=== PATIENT | male | born 1955 | race Caucasian/White ===

== ENCOUNTER 2019-02-27 05:27 | Inpatient (IN) ==
--- NOTE | 2019-02-11 19:57 | History & Physical Report ---
Date of Service February 11, 2019 Assessment & Plan (1) Status post total shoulder arthroplasty: Treatment options were discussed with the patient. He has significant pain and dysfunction of his left shoulder. Risks, benefits and alternatives to surgery including but not limited to infection, DVT, pain, stiffness, need for revision surgery, damage to blood vessels, damage to nerves, PE, , were discussed with the patient and they wish to proceed. Plan will be for left revision of the glenoid component of total shoulder arthroplasty versus conversion to reverse total shoulder arthroplasty. All questions were answered and reassurance was given. Plan will be for patient to return back to [facility] upon discharge from the hospital. Surgery is scheduled for February 27 2019 at [facility]. He will follow up in the office post operatively. Laterality: left Qualified Code(s): Z96.612 - Presence of left artificial shoulder joint (2) Left shoulder pain: History of Present Illness Chief Complaint: Left shoulder pain Patient is a 63 year old male with past medical history significant for COPD, GERD, RA, hepatitis, benign lung Mass. He presents with ongoing left shoulder pain. He had a left total shoulder arthroplasty in November of 2015. He initially had done well postoperatively. Two years post-op he sustained an injury in which his arm was forcibly abducted and externally rotated. He felt a pop at the time of injury and has had significant pain since. Blood work was obtained to rule out the possibility of infection. A CT arthrogram was also obtained. He was lost to follow-up as he was dealing with a lung Mass but turned out to be benign. He presented to the office with continued left shoulder pain and to review results of CT arthrogram. CT scan demonstrated that the glenoid poly had broken off of the pegs and is displaced. He continues to have significant pain in the shoulder and significantly decreased function of this arm. He would like to proceed with surgical revision. Patient denies headaches, sweats, fevers, chills, double vision, blurred vision, cough, sore throat, dysphagia, chest pain, sob, wheezing, n/v/d/c, numbness, tingling, fatigue, urinary symptoms, mood disorders. ROS positive for left shoulder pain and stiffness. Allergies Allergy/AdvReac Type Severity Reaction Status Date / Time No Known Allergies Allergy Unverified 02/06/19 15:16 Home Medications Home Medications Medication Instructions Recorded Confirmed Type Alvesco 1 puff INHALATION BID 09/09/18 02/06/19 History ammonium lactate 1 applic TOPICAL DAILY 09/09/18 02/06/19 History aspirin 81 mg PO .LUNCH 09/09/18 02/06/19 History gabapentin 800 mg PO TID 09/09/18 02/06/19 History levalbuterol tartrate [Xopenex HFA] 2 inh INHALATION Q6H 09/09/18 02/06/19 History naproxen 500 mg PO BID PRN 09/09/18 02/06/19 History ascorbic acid (vitamin C) [Vitamin 250 mg PO BID 02/06/19 02/06/19 History C] cholecalciferol (vitamin D3) 5,000 unit PO DAILY 02/06/19 02/06/19 History [Vitamin D3] Past Med/Surg History Medical History COPD (chronic obstructive pulmonary disease) GERD (gastroesophageal reflux disease) Hx of hepatitis HEP A/B= NO FURTHER DETAILS Neoplasm LUNG (S/P LT UPPER LOBECTOMY), TRACHEA, BRONCHUS Rheumatoid arthritis Surgical History History of arthroscopy of shoulder LEFT TSA= 12/03/15= GRADE 1 VIEW, MAC 3, ETT 8.0 AT [facility] History of lobectomy of lung 09/18/2018 - [facility] - LT VAT W/ LT UPPER LOBECTOMY + MEDIASTINAL LYMPHADENECTOMY History of lung biopsy Social History Preferred Language: Kiswahili Communication Ability: Effective Adzing 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 Boring 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 Feeder Required: No Beliefs That Will Affect Care: None Current Living Situation: Other Current Living Situation Comment: GROUP HOME Feels Safe at Home: Yes Smoking Status: Former smoker Tobacco Type: cigarettes Smoking End Date: QUIT 09/18/18 Second Hand Exposure: No Hx Alcohol Use: No Hx Substance Use: No Review of Systems All systems reviewed & are unremarkable except as noted in HPI & below Physical Exam Constitutional: well developed and well nourished; no acute distress Eyes: PERRL, conjunctivae normal, anicteric sclerae ENMT: external ear and nose normal, oropharynx normal Neck: trachea midline, no thyromegaly Respiratory: normal respiratory effort, lungs clear to auscultation Cardiovascular: RRR, no murmur, no edema Musculoskeletal: Left shoulder: Well healed incision. Mild diffuse tenderness. ROM-FF 0-45, ABD 0-45, ER to neutral, pop-eye deformity. Strength 3+/5 supraspinatus and infraspinatus Skin: no rashes, warm and dry Neurologic: patellar DTR's 2+ bilat, sensation intact Psychiatric: A+Ox3, euthymic affect Results & Data Diagnostic Findings Left shoulder radiographs: Left total shoulder arthroplasty. Humeral stem in place without evidence of loosening, however questionable lysis at proximal humerus. There is narrowing of glenohumeral joint. Poly radiopaque marker in place Left shoulder CT arthrogram: Fracture of the poly glenoid off of pegs with displacement of the poly glenoid.
--- NOTE | 2019-02-19 09:11 | Anesthesiology Consultation ---
Date of Service February 19, 2019 Assessment & Plan (1) Encounter for pre-operative examination: Chart Review Chart Review: Acceptable Risk for Surgery and Patient NOT seen in Pre Admission Testing Consults Requested none Additional Notes Pt scheduled for right sided shoulder surgery with recent left sided VATs and lobectomy. STAT CXR ordered for DOS. Anesthesiologist with evaluate patient the DOS to determine anesthetic plan. History Surgery Operation Date: 02/27/19 07:00 Proposed Procedures p Right Total Shoulder Revision Versus Conversion to Reverse Total Shoulder Arthroplasty - Oscar Perez MD Height/Weight Height: 6 ft 1 in Weight: 97.522 kg Allergies Allergy/AdvReac Type Severity Reaction Status Date / Time No Known Allergies Allergy Unverified 02/06/19 15:16 Medications Home Medications Medication Instructions Recorded Confirmed Last Taken Alvesco 1 puff INHALATION BID 09/09/18 02/06/19 09/18/18 06:30 ammonium lactate 1 applic TOPICAL DAILY 09/09/18 02/06/19 09/17/18 08:00 aspirin 81 mg PO .LUNCH 09/09/18 02/06/19 09/17/18 08:00 gabapentin 800 mg PO TID 09/09/18 02/06/19 09/18/18 06:30 levalbuterol tartrate [Xopenex HFA] 2 inh INHALATION Q6H 09/09/18 02/06/19 09/17/18 naproxen 500 mg PO BID PRN 09/09/18 02/06/19 09/15/18 ascorbic acid (vitamin C) [Vitamin 250 mg PO BID 02/06/19 02/06/19 Unknown C] cholecalciferol (vitamin D3) 5,000 unit PO DAILY 02/06/19 02/06/19 Unknown [Vitamin D3] Past Medical History Medical History COPD (chronic obstructive pulmonary disease) GERD (gastroesophageal reflux disease) Hx of hepatitis HEP A/B= NO FURTHER DETAILS Neoplasm LUNG (S/P LT UPPER LOBECTOMY), TRACHEA, BRONCHUS Rheumatoid arthritis Past Surgical History Surgical History History of arthroscopy of shoulder LEFT TSA= 12/03/15= GRADE 1 VIEW, MAC 3, ETT 8.0 AT [facility] History of lobectomy of lung 09/18/2018 - [facility] - LT VAT W/ LT UPPER LOBECTOMY + MEDIASTINAL LYM PHADENECTOMY - grade 1 view with Mac 3 and placement of 39 kiswahili WILLI History of lung biopsy Social History Smoking Status: Former smoker tobacco type: cigarettes Smoking End Date: QUIT 09/18/18 Hx Alcohol Use: No Hx Substance Use: No substance use type: does not use Testing Laboratory Results WBC: 11.39 H/H: 13.3/39.6 PLATELETS: 133 SODIUM: 135 POTASSIUM: 4.1 CHLORIDE: 103 CO2: 31 BUN: 15 CREATININE: 0.96 GLUCOSE: 104 PT: 11.3 PTT: 31 INR: 1.1 Electrocardiogram Date: 02/05/19 Findings: + NSR @ (79) left axis deviation Chest X-Ray Date: 09/20/18 IMPRESSION: Status post removal of the left-sided chest tube with small left pneumothorax redemonstrated. Echocardiogram Date: 05/30/18 EF 55%. No RWMA. No siginificant valvular disease. Other Testing CT chest= 06/25/18= Irregular spiculated abnormality in the SYEDA highly concerning for bronchogenic carcinoma. Tiny perifussural and subpleural nodules are scattered elsewhere in both lungs. nonspecific.
[2019-02-27] MEDS ORDERED: ACETAMINOPHEN 500 MG TAB PO SCH (06:00)
[2019-02-27] MEDS ORDERED: GABAPENTIN 300 MG x 2 PO SCH (06:00)
[2019-02-27] MEDS ORDERED: CEFAZOLIN 2000MG 2,000 MG/15 ML SYR IV SCH (06:00)
[2019-02-27] MEDS ORDERED: ROPIVACAINE 0.5% HCL/PF 150 MG, BUPIVACAINE 0.5% MPF 30 ML, EPINEPHrine 30MG/30ML (OR U... INFIL SCH (06:00)
[2019-02-27] MEDS ORDERED: TRANEXAMIC ACID 1,000 MG **IV Pre-op IV SCH (06:00)
[2019-02-27] MEDS ORDERED: CeleBREX 200 MG CAP PO SCH (06:00)
[2019-02-27] MEDS ORDERED: FAMOTIDINE 20 MG TAB PO SCH (06:00)
[2019-02-27] MEDS ORDERED: METOCLOPRAMIDE HCL 10 MG TABLET PO SCH (06:00)
[2019-02-27] MEDS ORDERED: LR 15ML/HR IV SCH (06:00)
[2019-02-27] MEDS ORDERED: ROPIVACAINE 0.5% 5 MG/ML 30 ML VIAL ONE (06:26)
[2019-02-27] MEDS ORDERED: BUPIVACAINE/EPINEPHRINE 0.5% MPF 1:200,000 30 ML VIAL ONE (06:27)
[2019-02-27] MEDS ORDERED: TRANEXAMIC ACID 1,000 MG **IV Intra-op IV SCH (06:30)
--- NOTE | 2019-02-27 06:34 | XRay Report ---
XR chest 1V portable CLINICAL HISTORY: Preoperative chest COMPARISON STUDY: 09/20/2018 FINDINGS: The cardiac and mediastinal contours are normal. There is no evidence of focal pulmonary co nsolidation. There is no evidence of failure. No pleural effusions are visualized.[ Underlying emphys fe is suspected. There are postsurgical changes of total left shoulder arthroplasty. IMPRESSION: No active disease in the chest. Electronically signed by: Daron Mattson M.D. 02/27/2019 6:32 AM
[2019-02-27] MEDS ORDERED: PROPOFOL IV EMULSION 10 MG/ML 20 ML VIAL IV ONE (06:45)
[2019-02-27] MEDS ORDERED: ONDANSETRON INJ 2 MG/ML 2 ML VIAL ONE (06:45)
[2019-02-27] MEDS ORDERED: LIDOCAINE HCL 2% 2 ML VIAL/AMP(20MG/ML) INFIL ONE (06:45)
[2019-02-27] MEDS ORDERED: MIDAZOLAM HCL 1 MG/ML 2ML VIAL ONE (06:46)
[2019-02-27] MEDS ORDERED: fentaNYL citrate 100 MCG/2 ML VIAL ONE (06:46)
[2019-02-27] MEDS ORDERED: fentaNYL citrate 100 MCG/2 ML VIAL IV PRN (06:57)
[2019-02-27] MEDS ORDERED: ONDANSETRON INJ 2 MG/ML 2 ML VIAL IV PRN ×2 (06:57→12:58)
[2019-02-27] MEDS ORDERED: HYDROmorphone INJ 1 MG/ML SYRINGE IV PRN (06:57)
[2019-02-27] MEDS ORDERED: ATROPINE SULFATE 0.1 MG/ML 10ML SYR IV PRN (06:57)
[2019-02-27] MEDS ORDERED: ePHEDrine sulfate 50 MG/ML AMP IV PRN (06:57)
[2019-02-27] MEDS ORDERED: CEFAZOLIN 2,000 MG/15 ML IV PUSH IV ONE (06:58)
[2019-02-27] MEDS ORDERED: ACETAMINOPHEN 500 MG TAB ONE (06:59)
[2019-02-27] MEDS ORDERED: CeleBREX 200 MG CAP ONE (06:59)
[2019-02-27] MEDS ORDERED: GABAPENTIN 300 MG CAP ONE (07:00)
[2019-02-27] MEDS ORDERED: METOCLOPRAMIDE HCL 10 MG TABLET ONE (07:00)
[2019-02-27] MEDS ORDERED: FAMOTIDINE 20 MG TAB ONE (07:00)
[2019-02-27] MEDS ORDERED: VANCOMYCIN HCL 1000MG/20ML VIAL ONE (07:19)
[2019-02-27] MEDS ORDERED: BACITRACIN INJ 50,000 UNIT VIAL ONE (07:20)
--- NOTE | 2019-02-27 07:43 | History & Physical Bridge Note ---
Date of Service February 27, 2019 History & Physical Bridge Note I have examined the patient, reviewed the History & Physical and in the interval since the performance of the History & Physical I have noted the following changes of clinical significance: Left shoulder
[2019-02-27] MEDS ORDERED: ALBUTEROL 0.5% NEB SOLN 2.5 MG/0.5 ML VIAL ONE (07:45)
[2019-02-27] MEDS ORDERED: ALBUTEROL HFA INHALER 8.5 GM ONE (07:46)
[2019-02-27] MEDS ORDERED: SUCCINYLCHOLINE CHLORIDE 20 MG/ML 10 ML VIAL ONE (08:26)
[2019-02-27] MEDS ORDERED: ROCURONIUM BROMIDE 10 MG/ML 5 ML VIAL ONE (08:26)
[2019-02-27] MEDS ORDERED: DEXAMETHASONE SOD INJ 4 MG/ML VIAL ONE (08:39)
[2019-02-27] MEDS ORDERED: PHENYLEPHRINE 100MCG/ML 5ML SYR ONE (08:39)
[2019-02-27] MEDS ORDERED: ePHEDrine sulfate 50 MG/ML AMP ONE (08:39)
[2019-02-27] MEDS ORDERED: ePHEDrine sulfate 50 MG/ML SYR ONE (09:40)
[2019-02-27] MEDS ORDERED: EpINEphrine HCL INJ 1 MG/ML 1ML SYRINGE ONE (10:19)
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
--- NOTE | 2019-02-27 12:25 | XRay Report ---
XR shoulder LT min 2V routine CLINICAL HISTORY: Post shoulder surgery COMPARISON: 12/03/2015 DISCUSSION: There are postsurgical changes of a total left shoulder arthroplasty. Overlying skin stap les are visualized. There is gas present within the soft tissues consistent with recent surgery. Ther e are no acute fractures. There is no dislocation. IMPRESSION: 1. Total left shoulder arthroplasty 2. No evidence of dislocation Electronically signed by: Daron Mattson M.D. 02/27/2019 12:24 PM
--- NOTE | 2019-02-27 12:40 | Anesthesiology Progress Note ---
Date of Service February 27, 2019 Anesthesia Post Procedure Vital Signs Vital Signs: Temp Pulse Pulse Resp BP Pulse Ox 02/27/19 12:35 36.6 C 85 14 107/75 94 02/27/19 12:25 86 16 108/77 94 02/27/19 12:15 93 H 18 103/77 95 02/27/19 12:05 91 H 17 108/82 96 02/27/19 11:56 36.4 C L 91 H 18 117/86 98 02/27/19 05:57 36.4 C L 64 18 127/82 93 Transfer of Care Handoff Completed per policy Notes Mental Status: alert / awake / arousable and participated in evaluation Patient Amnestic to Procedure: Yes Nausea / Vomiting: adequately controlled Pain: adequately controlled Airway Patency, RR, SpO2: stable & adequate BP & HR: stable & adequate Hydration State: stable & adequate Anesthetic Complications: no major complications apparent and Pt Satisfied with anesthetic care
[2019-02-27] MEDS ORDERED: METOCLOPRAMIDE HCL INJ 5 MG/ML 2 ML VIAL IV PRN (12:58)
[2019-02-27] MEDS ORDERED: BISACODYL 10 MG SUPP PR PRN (12:58)
[2019-02-27] MEDS ORDERED: NALOXONE HCL 0.4 MG/1 ML VIAL/CARP IV PRN (12:58)
[2019-02-27] MEDS ORDERED: MAGNESIUM HYDROXIDE SUSP 30 ML UDC PO PRN (12:58)
[2019-02-27] MEDS: ASPIRIN 81 MG CHEW PO SCH (14:13)
[2019-02-27] MEDS: GABAPENTIN 800 MG TAB PO SCH ×2 (14:14→20:29)
[2019-02-27] MEDS: ACETAMINOPHEN 500 MG TAB PO SCH ×2 (14:14→20:29)
[2019-02-27] MEDS: LEVALBUTEROL TARTRATE 15 GM HFA.AER.AD INH SCH ×2 (14:16→19:13)
[2019-02-27] MEDS: SODIUM CHLORIDE 0.9% 1000ML 1,000 ML IV SCH (14:17)
[2019-02-27] MEDS: CEFAZOLIN 2000MG 2,000 MG/15 ML SYR IV SCH ×2 (15:47→23:57)
[2019-02-27] MEDS: DOCUSATE SODIUM 100 MG CAP PO SCH (20:29)
[2019-02-27] MEDS: ASCORBIC ACID 500 MG TAB PO SCH (20:29)
[2019-02-27] MEDS: SENNA 8.6 MG TAB PO SCH (20:29)
[2019-02-27] MEDS: OXYCODONE HCL IR 5 MG TAB (IMMEDIATE RELEASE) PO PRN (21:47)
[2019-02-28] MEDS: LEVALBUTEROL TARTRATE 15 GM HFA.AER.AD INH SCH ×5 (00:38→23:38)
[2019-02-28] MEDS: SODIUM CHLORIDE 0.9% 1000ML 1,000 ML IV SCH (01:42)
[2019-02-28] MEDS: OXYCODONE HCL IR 5 MG TAB (IMMEDIATE RELEASE) PO PRN ×5 (03:52→22:01)
[2019-02-28 06:04] LABS: Basophils # (auto) 0.01 K/uL (0-0.2); Basophils % (auto) 0.1 %; Eosinophils # (auto) 0.01 K/uL (0-0.5); Eosinophils % (auto) 0.1 %; Hemoglobin 11.2 g/dL (14.0-18.0); Immature Granulocytes # (auto) 0.03 K/uL (0.00-0.02); Immature Granulocytes % (auto) 0.3 %; Lymphocytes % (auto) 10.6 %; Mean Corpuscular Hgb Conc 33.9 g/dL (32-36); Mean Corpuscular Volume 91.7 fL (80-100); Mean Platelet Volume 9.1 fL (7.4-10.4); Monocytes # (auto) 0.98 K/uL (0.11-0.59); Monocytes % (auto) 8.7 %; Neutrophils # (auto) 9.04 K/uL (1.4-6.5); Neutrophils % (auto) 80.2 %; Platelet Count 130 K/uL (130-400); RDW Coefficient of Variation 14.7 % (11.5-14.5); RDW Standard Deviation 49.7 fL (36.4-46.3); White Blood Count 11.27 K/uL (4.8-10.8)
[2019-02-28] MEDS: ACETAMINOPHEN 500 MG TAB PO SCH ×3 (06:04→20:41)
[2019-02-28 06:38] LABS: BUN Creatinine Ratio 20.4 (10-20); Calcium 7.9 mg/dl (8.5-10.1); Creatinine Clr Calc Pharmacy 92.2 ml/min; Est GFR (African American) 90.9; Est GFR (Non-African American) 78.4; Potassium 4.2 mmol/L (3.5-5.1)
--- NOTE | 2019-02-28 06:45 | Orthopedic Progress Note ---
Date of Service February 28, 2019 Assessment & Plan (1) Status post total shoulder arthroplasty: POD #1 left revision total shoulder arthroplasty Pain management DVT prophylaxisSCDs PT/OTnonweightbearing left upper extremity, status post revision total shoulder A.m. labs hemoglobin at 11.2 down from 15 on preop labs. Acute blood loss anemia likely due to surgical loss versus dilutional We will continue to monitor blood pressure, may give bolus of fluid if fails to improve Discharge planning: Plan will [facility]. Subjective Patient is postop day #1 left revision total shoulder. Doing well this morning, resting in bed comfortably. Block is worn off and pain is starting to increase. Denies chest pain, shortness of breath, dizziness, nausea/vomiting/diarrhea. Blood pressure was low earlier this morning, at 85/49, however he is asymptomatic. No other complaints at this time. Review of Systems Review of Systems: All systems reviewed & are unremarkable except as noted in HPI & below Physical Exam Physical Exam: Patient resting in bed comfortably. No acute distress. Left arm is neurovascularly intact, distal pulses +2 bilaterally. 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 Hemovac in place. Dr espino to left shoulder is clean, dry, and intact. Results & Data Vital Signs (Past 12 Hours) Vital Signs Temp Pulse Resp BP Pulse Ox 02/28/19 03:26 36.5 C 72 14 85/49 L 92 02/27/19 23:06 36.5 C 81 14 95/58 L 92 02/27/19 19:04 36.4 C L 95 H 18 107/72 92 (1) Status post total shoulder arthroplasty Laterality: left Qualified Code(s): Z96.612 - Presence of left artificial shoulder joint
[2019-02-28] MEDS: HYDROmorphone INJ 0.5 MG/0.5 ML SYR IV PRN ×4 (07:28→23:41)
[2019-02-28] MEDS: CHOLECALCIFEROL 1,000 UNITS TAB PO SCH (07:29)
[2019-02-28] MEDS: ASCORBIC ACID 500 MG TAB PO SCH ×2 (07:29→20:41)
[2019-02-28] MEDS: DOCUSATE SODIUM 100 MG CAP PO SCH ×2 (07:30→20:41)
[2019-02-28] MEDS: MULTIVITAMIN TAB PO SCH (07:30)
[2019-02-28] MEDS: GABAPENTIN 800 MG TAB PO SCH ×3 (07:30→20:41)
--- NOTE | 2019-02-28 10:33 | Anesthesiology Progress Note ---
Date of Service February 28, 2019 Anesthesia Post Procedure Vital Signs Vital Signs: Temp Pulse Pulse Resp BP BP Pulse Ox 02/28/19 07:22 36.6 C 69 18 101/68 95 02/28/19 03:26 36.5 C 72 14 85/49 L 92 02/27/19 23:06 36.5 C 81 14 95/58 L 92 02/27/19 19:04 36.4 C L 95 H 18 107/72 92 02/27/19 16:03 36.3 C L 82 16 92/60 L 93 02/27/19 14:58 36.5 C 89 16 117/76 92 02/27/19 14:05 91 H 16 105/71 95 02/27/19 13:28 87 18 112/74 94 02/27/19 13:11 36.5 C 83 16 112/71 95 02/27/19 12:35 36.6 C 85 14 107/75 94 02/27/19 12:25 86 16 108/77 94 02/27/19 12:15 93 H 18 103/77 95 02/27/19 12:05 91 H 17 108/82 96 02/27/19 11:56 36.4 C L 91 H 18 117/86 98 Pain Intensity Left Shoulder: Pain Intensity: 4 Notes Mental Status: alert / awake / arousable and participated in evaluation Patient Amnestic to Procedure: Yes Nausea / Vomiting: adequately controlled Pain: adequately controlled Airway Patency, RR, SpO2: stable & adequate BP & HR: stable & adequate Hydration State: stable & adequate Anesthetic Complications: no major complications apparent
[2019-02-28] MEDS: ASPIRIN 81 MG CHEW PO SCH (10:56)
[2019-02-28] MEDS: SENNA 8.6 MG TAB PO SCH (20:41)
--- NOTE | 2019-02-28 23:06 | Hospitalist Consultation ---
Date of Consultation February 28, 2019 Assessment & Plan (1) Hypotension after procedure: Consulted for medical management in regards to Blood pressure was low earlier in the day. But since has stabilized. Will continue to monitor peripherally. Patient currently asymptomatic. Medicine will sign off. History of Present Illness Reason for Consultation: Hypotension Attending Physician: Oscar Perez MD History of Present Illness Patient is a 63 year old male with past medical history significant for COPD, GERD, RA, hepatitis, benign lung Mass. He had a left total shoulder arthroplasty in November of 2015. He initially had done well postoperatively.However recent CT arthrogram demonstrated that the glenoid poly had broken off of the pegs and is displaced. He required surgical revision. After surgery, patient though was hypotensive. owever, this subsided overnight. B/P has remained stable throughout the day. . Patient denies headaches, sweats, fevers, chills, double vision, blurred vision, cough, sore throat, dysphagia, chest pain, sob, wheezing, n/v/d/c, numbness, tingling, fatigue, urinary symptoms, mood disorders. ROS positive for left shoulder pain and stiffness Allergies Allergy/AdvReac Type Severity Reaction Status Date / Time No Known Allergies Allergy Verified 02/27/19 05:53 Home Medications Home Medications Medication Instructions Recorded Confirmed Type Alvesco 1 puff INHALATION BID 09/09/18 02/27/19 History ammonium lactate 1 applic TOPICAL DAILY 09/09/18 02/27/19 History aspirin 81 mg PO .LUNCH 09/09/18 02/27/19 History gabapentin 800 mg PO TID 09/09/18 02/27/19 History levalbuterol tartrate [Xopenex HFA] 2 inh INHALATION Q6H 09/09/18 02/27/19 History ascorbic acid (vitamin C) [Vitamin 250 mg PO BID 02/06/19 02/27/19 History C] cholecalciferol (vitamin D3) 5,000 unit PO DAILY 02/06/19 02/27/19 History [Vitamin D3] acetaminophen [Tylenol Extra 1,000 mg PO Q8 #60 tab 02/28/19 Rx Strength] oxycodone 5 - 10 mg PO .Q4H-6H PRN #30 tab 02/28/19 Rx MDD 6 Patient History Medical History COPD (chronic obstructive pulmonary disease) GERD (gastroesophageal reflux disease) Hx of hepatitis HEP A/B= NO FURTHER DETAILS Neoplasm LUNG (S/P LT UPPER LOBECTOMY), TRACHEA, BRONCHUS Rheumatoid arthritis Surgical History History of arthroscopy of shoulder LEFT TSA= 12/03/15= GRADE 1 VIEW, MAC 3, ETT 8.0 AT [facility] History of lobectomy of lung 09/18/2018 - [facility] - LT VAT W/ LT UPPER LOBECTOMY + MEDIASTINAL LYMPHADENECTOMY - grade 1 view with Mac 3 and placement of 39 vietnamese WILLI History of lung biopsy Social History Preferred Language: Bulgarian Communication Ability: Effective Clamp Remover Required: No Beliefs That Will Affect Care: None marital status: Unknown Current Living Situation: Other Current Living Situation Comment: [facility] Feels Safe at Home: Yes Smoking Status: Former smoker Tobacco Type: cigarettes Smoking End Date: QUIT 09/18/18 Second Hand Exposure: No Hx Alcohol Use: No Hx Substance Use: No Review of Systems Review of Systems: All systems reviewed & are unremarkable except as noted in HPI & below Physical Exam Constitutional: WD/WN, vitals as above well developed and well nourished Eyes: PERRL, conjunctivae normal, anicteric sclerae ENMT: external ear and nose normal, oropharynx normal Neck: trachea midline, no thyromegaly Respiratory: normal respiratory effort, lungs clear to auscultation Cardiovascular: RRR, no murmur, no edema Gastrointestinal (Abdomen): normal bowel sounds, soft, nontender, no hepatosplenomegaly Musculoskeletal: no cyanosis or clubbing, extremities motor strength 5/5 Skin: no rashes, warm and dry Lymphatic: no cervical or axillary lymphadenopathy Results & Data Vital Signs (Past 12 Hours) Vital Signs Temp Pulse Resp BP Pulse Ox 02/28/19 15:40 36.5 C 76 16 103/63 93 PG Care Time/CCT Total # of Minutes Spent Total Time Spent with Patient: Total time spent is greater than 50% in coordination of care (as documented) at patient's floor/unit and/or counseling patient:
[2019-03-01] MEDS: OXYCODONE HCL IR 5 MG TAB (IMMEDIATE RELEASE) PO PRN ×3 (02:14→10:16)
[2019-03-01] MEDS: HYDROmorphone INJ 0.5 MG/0.5 ML SYR IV PRN ×3 (04:25→12:38)
[2019-03-01] MEDS: ACETAMINOPHEN 500 MG TAB PO SCH (06:26)
[2019-03-01] MEDS: LEVALBUTEROL TARTRATE 15 GM HFA.AER.AD INH SCH ×2 (06:27→10:50)
[2019-03-01 07:08] LABS: Basophils # (auto) 0.02 K/uL (0-0.2); Basophils % (auto) 0.3 %; Eosinophils % (auto) 2.5 %; Hematocrit (blood only) 33.4 % (42-52); Hemoglobin 11.2 g/dL (14.0-18.0); Immature Granulocytes # (auto) 0.03 K/uL (0.00-0.02); Immature Granulocytes % (auto) 0.4 %; Lymphocytes # (auto) 1.89 K/uL (1.2-3.4); Lymphocytes % (auto) 24.1 %; Mean Corpuscular Hgb Conc 33.5 g/dL (32-36); Mean Corpuscular Volume 92.8 fL (80-100); Mean Platelet Volume 9.4 fL (7.4-10.4); Monocytes # (auto) 0.93 K/uL (0.11-0.59); Monocytes % (auto) 11.8 %; Neutrophils # (auto) 4.78 K/uL (1.4-6.5); Neutrophils % (auto) 60.9 %; Platelet Count 125 K/uL (130-400); RDW Coefficient of Variation 14.9 % (11.5-14.5); White Blood Count 7.85 K/uL (4.8-10.8)
[2019-03-01] MEDS: ASCORBIC ACID 500 MG TAB PO SCH (08:52)
[2019-03-01] MEDS: MULTIVITAMIN TAB PO SCH (08:52)
[2019-03-01] MEDS: GABAPENTIN 800 MG TAB PO SCH (08:53)
[2019-03-01] MEDS: DOCUSATE SODIUM 100 MG CAP PO SCH (08:53)
[2019-03-01] MEDS: CHOLECALCIFEROL 1,000 UNITS TAB PO SCH (08:54)
--- NOTE | 2019-03-01 09:01 | Orthopedic Progress Note ---
Date of Service March 01, 2019 Assessment & Plan (1) Status post total shoulder arthroplasty: POD #2 left revision total shoulder arthroplasty Pain management DVT prophylaxisSCDs PT/OTnonweightbearing left upper extremity, status post revision total shoulder Discharge planning: Plan will be to [facility] back [facility] once stable. Subjective POD #2 s/p left Rev TSA No complaints. Feeling well today. No CP, SOB. n/v, dizziness Physical Exam Physical Exam: Fingers mobile, NVI. Dressing in place and drain. Incision clean and dry Results & Data Vital Signs (Past 12 Hours) Vital Signs Temp Pulse Resp BP Pulse Ox 03/01/ 07:29 36.4 C L 64 18 112/68 97 02/28/ 23:21 36.4 C L 72 16 94/58 L 94 (1) Status post total shoulder arthroplasty Laterality: left Qualified Code(s): Z96.612 - Presence of left artificial shoulder joint
[2019-03-01] MEDS: ASPIRIN 81 MG CHEW PO SCH (10:50)
--- NOTE | 2019-03-03 08:40 | Discharge Summary ---
Date of Service March 03, 2019 Admission HPI Per Admitting Provider Patient is a 63 year old male with past medical history significant for COPD, GERD, RA, hepatitis, benign lung Mass. He presents with ongoing left shoulder pain. He had a left total shoulder arthroplasty in November of 2015. He initially had done well postoperatively. Two years post-op he sustained an injury in which his arm was forcibly abducted and externally rotated. He felt a pop at the time of injury and has had significant pain since. Blood work was obtained to rule out the possibility of infection. A CT arthrogram was also obtained. He was lost to follow-up as he was dealing with a lung Mass but turned out to be benign. He presented to the office with continued left shoulder pain and to review results of CT arthrogram. CT scan demonstrated that the glenoid poly had broken off of the pegs and is displaced. He continues to have significant pain in the shoulder and significantly decreased function of this arm. He would like to proceed with surgical revision. Patient denies headaches, sweats, fevers, chills, double vision, blurred vision, cough, sore throat, dysphagia, chest pain, sob, wheezing, n/v/d/c, numbness, tingling, fatigue, urinary symptoms, mood disorders. ROS positive for left shoulder pain and stiffness. Admission Exam Per Admitting Provider Constitutional: well developed and well nourished; no acute distress Eyes: PERRL, conjunctivae normal, anicteric sclerae ENMT: external ear and nose normal, oropharynx normal Neck: trachea midline, no thyromegaly Respiratory: normal respiratory effort, lungs clear to auscultation Cardiovascular: RRR, no murmur, no edema Musculoskeletal: Left shoulder: Well healed incision. Mild diffuse tenderness. ROM-FF 0-45, ABD 0-45, ER to neutral, pop-eye deformity. Strength 3+/5 supraspinatus and infraspinatus Skin: no rashes, warm and dry Neurologic: patellar DTR's 2+ bilat, sensation intact Psychiatric: A+Ox3, euthymic affect Principal Diagnosis Left TSA hardware failure, loosening Discharge Exam Constitutional well developed and well nourished; no acute distress Eyes PERRL, conjunctivae normal, anicteric sclerae ENMT external ear and nose normal, oropharynx normal Neck trachea midline, no thyromegaly Respiratory normal respiratory effort, lungs clear to auscultation Cardiovascular RRR, no murmur, no edema Skin no rashes, warm and dry Neurologic patellar DTR's 2+ bilat, sensation intact Psychiatric A+Ox3, euthymic affect Discharge Data Allergies Allergy/AdvReac Type Severity Reaction Status Date / Time No Known Allergies Allergy Verified 02/27/19 05:53 Consultations 02/27/19 12:58 Consult Case Management - Discharge Planning Routine 02/28/19 07:31 Consult Hospitalist Routine Procedures Performed Operation Date: 02/27/19 08:00 Actual Procedures p Left Total Shoulder Revision (Left) - Oscar Perez MD Ordered Studies 02/27/19 05:00 US - OR guided needle placemen Routine 02/27/19 06:57 US - OR guided needle placemen Routine Hospital Course (1) Status post total shoulder arthroplasty: Patient presented for same day admission following left revision total shoulder arthroplasty on 02/27/19. He tolerated procedure well. On POD#1 patient was found to have asymptomatic hypotension. Dr. Andrey Wilson of medical service was consulted for management. Patient's BP then stabilized and improved. Post-operatively, his activity was progressed and well tolerated. Labs remained stable- lowest hemoglobin recorded: 11.2. Pain controlled on oral medications. Please refer to daily progress notes and PT notes for complete details. After exam on 03/01/19, patient was felt to be stable for discharge back to [facility]. Patient will f/u in the office in about 2 weeks for further evaluation including x-rays and incision check, sooner if having any issues or concerns. Lab Results 02/27/19 02/27/19 02/28/19 Range/Units 06:07 Unknown 05:45 WBC 11.27 H (4.8-10.8) K/uL RBC 3.60 L (4.7-6.1) M/uL Hgb 11.2 L (14.0-18.0) g/dL Hct 33.0 L (42-52) % MCV 91.7 (80-100) fL MCH 31.1 (25-34) pg MCHC 33.9 (32-36) g/dL RDW Std Deviation 49.7 H (36.4-46.3) fL RDW Coeff of Magdaleno 14.7 H (11.5-14.5) % Plt Count 130 (130-400) K/uL MPV 9.1 (7.4-10.4) fL Immature Gran % (Auto) 0.3 % Neut % (Auto) 80.2 % Lymph % (Auto) 10.6 % [place] % (Auto) 8.7 % Eos % (Auto) 0.1 % Baso % (Auto) 0.1 % Immature Gran # (Auto) 0.03 H (0.00-0.02) K/uL Neut # (Auto) 9.04 H (1.4-6.5) K/uL Lymph # (Auto) 1.20 (1.2-3.4) K/uL [place] # (Auto) 0.98 H (0.11-0.59) K/uL Eos # (Auto) 0.01 (0-0.5) K/uL Baso # (Auto) 0.01 (0-0.2) K/uL Sodium (136-145) mmol/L Potassium (3.5-5.1) mmol/L Chloride (98-107) mmol/L Carbon Dioxide (21-32) mmol/L Anion Gap (3-11) BUN (7-18) mg/dl Creatinine (0.6-1.4) mg/dl Est Cr Clr Drug Dosing ml/min Est GFR ( Amer) Est GFR (Non-Af Amer) BUN/Creatinine Ratio (10-20) Glucose (70-99) mg/dl Calcium (8.5-10.1) mg/dl Nasal Screen MRSA (PCR) Negative (Negative) Blood Type A Positive Antibody Screen NEGATIVE Crossmatch See Detail 02/28/19 03/01/19 Range/Units 05:45 06:52 WBC 7.85 (4.8-10.8) K/uL RBC 3.60 L (4.7-6.1) M/uL Hgb 11.2 L (14.0-18.0) g/dL Hct 33.4 L (42-52) % MCV 92.8 (80-100) fL MCH 31.1 (25-34) pg MCHC 33.5 (32-36) g/dL RDW Std Deviation 51.0 H (36.4-46.3) fL RDW Coeff of Magdaleno 14.9 H (11.5-14.5) % Plt Count 125 L (130-400) K/uL MPV 9.4 (7.4-10.4) fL Immature Gran % (Auto) 0.4 % Neut % (Auto) 60.9 % Lymph % (Auto) 24.1 % [place] % (Auto) 11.8 % Eos % (Auto) 2.5 % Baso % (Auto) 0.3 % Immature Gran # (Auto) 0.03 H (0.00-0.02) K/uL Neut # (Auto) 4.78 (1.4-6.5) K/uL Lymph # (Auto) 1.89 (1.2-3.4) K/uL [place] # (Auto) 0.93 H (0.11-0.59) K/uL Eos # (Auto) 0.20 (0-0.5) K/uL Baso # (Auto) 0.02 (0-0.2) K/uL Sodium 138 (136-145) mmol/L Potassium 4.2 (3.5-5.1) mmol/L Chloride 105 (98-107) mmol/L Carbon Dioxide 28 (21-32) mmol/L Anion Gap 5.0 (3-11) BUN 21 H (7-18) mg/dl Creatinine 1.02 (0.6-1.4) mg/dl Est Cr Clr Drug Dosing 92.2 ml/min Est GFR ( Amer) 90.9 Est GFR (Non-Af Amer) 78.4 BUN/Creatinine Ratio 20.4 H (10-20) Glucose 103 H (70-99) mg/dl Calcium 7.9 L (8.5-10.1) mg/dl Nasal Screen MRSA (PCR) (Negative) Blood Type Antibody Screen Crossmatch Total Time Total Time Spent Total Time Spent (In Minutes): 20 Discharge Plan Discharge Items [facility] Reason For Visit: Presence of Right Artifical Shoulder Joint Discharge Diagnosis: s/p Left revision total shoulder Discharge Goals: Decrease discomfort and Improve function Activity: Per 'Additional Instructions' section Non-emergency contact: Surgeon Call non-emergency contact if: you have any medication questions, your pain is not controlled, your pain is concerning for you, you have a fever, your temperature is above 101, your wound has increased redness, your wound has increased drainage and your wound pain has increased Follow-up/Referrals: Hollis BRANCH [Primary Care Provider] - Diet: Regular Addtl Provider Instructions: ACTIVITY RECOMMENDATIONS: SELF CARE INSTRUCTIONS AFTER TOTAL SHOULDER ARTHROPLASTY A. You may do daily exercises as taught in physical therapy while in hospital. No lifting with the operative arm. Please schedule your outpatient physical therapy appointment to begin within 2-3 days after leaving the hospital. Specific restrictions will be written on your physical therapy prescription that is provided to you. B. You are to wear your sling/immobilizer at all times EXCEPT when performing your daily exercises, participating in physical therapy and for hygiene purposes. C. You may perform dry, daily dressing changes. Please keep your incision covered. You may shower 48 hours after surgery. Do not apply soap or any ointment/lotions directly over incision. Do not soak incision in bath tub/swimming pool. D. You may use ice as needed to operative shoulder. SPECIAL CARE INSTRUCTIONS VERY IMPORTANT TO READ AND REVIEW A. There are a few signs you need to watch for after you are home. Call [facility] at [phone] if you experience any of the followin. Increased severe shoulder pain. Some pain is expected especially when you exercise. 2. Increased swelling in you shoulder or arm; pain or swelling in either upper extremity. 3. Any fluid drainage from the incision. 4. Shortness of breath or chest pain. B. Please call [facility] at [phone] if you have any questions or concerns about your operation or recovery. C. Call your physician if: 1. Temperature is greater than 101 degrees (F). 2. Pain is not relieved by prescribed pain medications. 3. Increase drainage or redness from incision. 4. Unanswered questions or concerns. FOLLOW UP VISIT: Please call [facility] at [phone] to schedule a follow up appointment with Dr. Perez or his PA in 12-14 days from your surgery date. Prescriptions: New acetaminophen [Tylenol Extra Strength] 500 mg Tablet 1,000 mg PO Q8 Qty: 60 RF: 0 oxycodone 5 mg Tablet 5 - 10 mg PO .Q4H-6H MDD 6 PRN (Reason: pain) Qty: 30 RF: 0 Continued gabapentin 800 mg Tablet 800 mg PO TID RF: 0 aspirin 81 mg Tablet,Chewable 81 mg PO .LUNCH RF: 0 ammonium lactate 12 % Cream 1 applic TOPICAL DAILY RF: 0 levalbuterol tartrate [Xopenex HFA] 45 mcg/actuation Hfa Aerosol Inhaler 2 inh INHALATION Q6H RF: 0 Alvesco 160 mcg/actuation Hfa Aerosol Inhaler 1 puff INHALATION BID RF: 0 ascorbic acid (vitamin C) [Vitamin C] 250 mg Tablet 250 mg PO BID RF: 0 cholecalciferol (vitamin D3) [Vitamin D3] 5,000 unit Tablet 5,000 unit PO DAILY RF: 0 Discontinued naproxen 500 mg Tablet,Delayed Release (Dr/Ec) 500 mg PO BID PRN (Reason: Pain) RF: 0 Stand-Alone Forms: [facility] Discharge Orders: Discharge Order (Routine); Ordered 03/01/19 Ordered By: Sumi Blandon Admission Data Admit Date/Time: 02/27/19 12:03 Attending Provider: Oscar Perez Admit Provider: Oscar Perez Primary Care Provider: Hollis BRANCH Other Providers: Andrey Wilson Thomas E. Service: Surgical Services Other Interventions: Discharge Summary Assessment (RN) Last Done: 03/01/19 10:23 DC Date/Time DO NOT enter until pt leaves facility: 03/01/19 13:05
== END 2019-03-01 13:05 | DRG 483 ==
LOC: ASU 05:27 → 3E 12:03

== ENCOUNTER 2022-11-23 07:15 | Inpatient (IN) ==
--- NOTE | 2022-07-26 08:57 | Anesthesiology Consultation ---
Date of Service July 26, 2022 Assessment & Plan (1) Encounter for pre-operative examination: - COVID screening: Per assessment on 07/25: No known COVID-19 positive contacts or current COVID-19 related symptoms. Travel screen negative. Patient vaccinated. Pt at [facility]. Order placed for [place] AM DOS. - PCP office visit (06/12/22): "cleared to have surgery" Chart Review Chart Review: Acceptable Risk for Surgery (pending evaluation AM DOS) and Patient NOT seen in Pre Admission Testing History Surgery Operation Date: 07/27/22 07:00 Proposed Procedures p Left Shoulder Revision Reverse Total Shoulder Replacement - Peng Mcnamara M.D. Height/Weight Height: 6 ft Weight: 94.347 kg Allergies Allergy/AdvReac Type Severity Reaction Status Date / Time No Known Allergies Allergy Verified 07/25/22 12:28 Medications Home Medications Medication Instructions Recorded Confirmed Last Taken aspirin 81 mg chewable tablet 81 mg PO .LUNCH 09/09/18 07/25/22 02/26/19 08:00 ciclesonide 160 mcg/actuation 1 puff inhalation BID 09/09/18 07/25/22 02/27/19 03:30 aerosol inhaler (Alvesco) gabapentin 800 mg tablet 800 mg PO TID 09/09/18 07/25/22 02/26/19 20:00 cholecalciferol (vitamin D3) 125 5,000 unit PO DAILY 02/06/19 07/25/22 02/26/19 08:00 mcg (5,000 unit) tablet (Vitamin D3) Vitamin E Lotion 1 applic topical BID 07/25/22 07/25/22 Unknown albuterol sulfate 90 mcg/actuation 1 inh inhalation QID PRN Wheezing 07/25/22 07/25/22 Unknown aerosol inhaler ascorbic acid (vitamin C) 250 mg 250 mg PO BID 07/25/22 07/25/22 Unknown tablet (Vitamin C) naproxen 500 mg tablet 500 mg PO BID PRN Pain 07/25/22 07/25/22 Unknown sodium chloride 2.65 % nasal spray 1 spray intranasal BID 07/25/22 07/25/22 Unknown aerosol ([facility]) Past Medical History Medical History COPD (chronic obstructive pulmonary disease) GERD (gastroesophageal reflux disease) Hx of hepatitis HEP A/B= NO FURTHER DETAILS Neoplasm LUNG (S/P LT UPPER LOBECTOMY), TRACHEA, BRONCHUS Rheumatoid arthritis Past Surgical History Surgical History History of arthroscopy of shoulder LEFT TSA= 12/03/15= GRADE 1 VIEW, MAC 3, ETT 8.0 AT [facility] History of lobectomy of lung 09/18/2018 - [facility] - LT VAT W/ LT UPPER LOBECTOMY + MEDIASTINAL LYMPHADENECTOMY - grade 1 view with Mac 3 and placement of 39 greek WILLI History of lung biopsy Social History Smoking Status: Unknown if ever smoked tobacco type: cigarettes substance use type: does not use Testing Laboratory Results 07/17/22 WBC 6.31 H/H 15.1/48.2 PLATELETS 180 SODIUM 145 POTASSIUM 4.7 CHLORIDE 106 CO2 31 BUN 22 CREATININE 1.04 GLUCOSE 99 UA negative leuk est/nitrite URINE CULTURE e. faecalis Electrocardiogram Date: 07/17/22 NSR at 70bpm. LAD. iRBBB. unconfirmed report.
--- NOTE | 2022-07-26 15:59 | History & Physical Report ---
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 His x-rays show unchanged anterior subluxation of the glenohumeral joint compared to 2 years ago, so I think this is been going on for quite some time. I am able to easily subluxate his glenohumeral joint on exam. I do not think the subscapularis would be repairable at this point. I advised him that the only way to restore stability of his shoulder would be to revise his total shoulder arthroplasty to a reverse total shoulder. This would be an extremely large surgery. He has a long stemmed humeral component that may require a humeral osteotomy to remove and convert to a reverse total shoulder. I think that the humeral stem might be a little too proud to convert to reverse, but this would be an intraoperative decision. This again would be a very large surgery with a lot of potential complications. However, he states that his shoulder is dislocating 5-6 times daily, and this is very bothersome and painful to him. He would like to proceed with a revision total shoulder. We will have to get this scheduled. Risks, benefits, and alternatives of surgery were explained in detail. The surgical procedure, as well as postoperative recovery and rehabilitation, was also explained in detail. Risks include bleeding; infection; damage to surrounding structures such as nerves, blood vessels, and tendons that run in the area; persistent pain or stiffness; hardware failure; nonunion; malunion; dislocation; brachial plexus palsy; blood clots; or need for further surgery. The patient understands all of this and wishes to proceed with surgery. Informed consent was obtained. History of Present Illness Chief Complaint: Left shoulder pain and instability Primary Care Provider: SARINA Shafer Mr. Cortez returns. Again, he is a 66-year-old old [id number]-lalqwxrb male with left shoulder pain and popping. He has had multiple previous surgeries on this left shoulder. He had a left total shoulder arthroplasty in November 2015, followed by a revision in February 2019 for fracture glenoid component, both by Dr. Perez. He reports that as soon as he went through the rehab for this left shoulder, he noticed this popping sensation in the left shoulder whenever he reaches to the side. He feels like it is popping out of place. He can easily get it to pop back into place. This is painful when this occurs, but he denies any pain on a regular basis other than during these popping episodes. He has never required a reduction under anesthesia for this. Previous operative reports were reviewed. He had a left anatomic total shoulder arthroplasty on 12/03/15. Humeral stem is an Exactech Equinoxe 11mm press-fit stem (110mm length). He then had a revision on 02/27/19 where the humeral head was exchanged but the stem was left in place and noted to be well fixed. The glenoid component was noted to be grossly loose, and this was replaced. Allergies Allergy/AdvReac Type Severity Reaction Status Date / Time No Known Allergies Allergy Verified 07/25/22 12:28 Home Medications Medication Instructions Recorded Confirmed Type aspirin 81 mg chewable tablet 81 mg PO .LUNCH 09/09/18 07/25/22 History ciclesonide 160 mcg/actuation 1 puff inhalation BID 09/09/18 07/25/22 History aerosol inhaler (Alvesco) gabapentin 800 mg tablet 800 mg PO TID 09/09/18 07/25/22 History cholecalciferol (vitamin D3) 125 5,000 unit PO DAILY 02/06/19 07/25/22 History mcg (5,000 unit) tablet (Vitamin D3) Vitamin E Lotion 1 applic topical BID 07/25/22 07/25/22 History albuterol sulfate 90 mcg/actuation 1 inh inhalation QID PRN Wheezing 07/25/22 07/25/22 History aerosol inhaler ascorbic acid (vitamin C) 250 mg 250 mg PO BID 07/25/22 07/25/22 History tablet (Vitamin C) naproxen 500 mg tablet 500 mg PO BID PRN Pain 07/25/22 07/25/22 History sodium chloride 2.65 % nasal spray 1 spray intranasal BID 07/25/22 07/25/22 History aerosol ([facility]) Past Med/Surg History Medical History (Updated 07/26/22 @ 15:59 by Peng Mcnamara M.D.) Anemia COPD (chronic obstructive pulmonary disease) GERD (gastroesophageal reflux disease) Hx of hepatitis HEP A/B= NO FURTHER DETAILS Neoplasm LUNG (S/P LT UPPER LOBECTOMY), TRACHEA, BRONCHUS Rheumatoid arthritis Surgical History History of arthroscopy of shoulder LEFT TSA= 12/03/15= GRADE 1 VIEW, MAC 3, ETT 8.0 AT [facility] History of lobectomy of lung 09/18/2018 - [facility] - LT VAT W/ LT UPPER LOBECTOMY + MEDIASTINAL LYMPHADENECTOMY - grade 1 view with Mac 3 and placement of 39 turkish WILLI History of lung biopsy Social History Smoking Status: Unknown if ever smoked Second Hand Exposure: No; Preferred Language: Yakut Communication Ability: Effective 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 Rotator cuff strength is 5 out of 5 on external rotation. Supraspinatus stress testing reveals mild to moderate weakness. Internal rotation testing shows that the subscapularis is very weak. Anterior subluxation of the glenohumeral joint is easily palpable. Results & Data ([facility]) Diagnostic Findings Previous x-rays of the left shoulder from February 2022 were reviewed. They show a long-stemmed anatomic total shoulder arthroplasty. No evidence of hardware failure or loosening. No proximal migration of the humeral head. However, the humeral head does look anteriorly subluxated on the axillary view. Overall no significant change from comparison x-rays in October 2019.
--- NOTE | 2022-11-22 15:49 | History & Physical Report ---
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 His x-rays show unchanged anterior subluxation of the glenohumeral joint compared to 2 years ago, so I think this is been going on for quite some time. I am able to easily subluxate his glenohumeral joint on exam. I do not think the subscapularis would be repairable at this point. I advised him that the only way to restore stability of his shoulder would be to revise his total shoulder arthroplasty to a reverse total shoulder. This would be an extremely large surgery. He has a long stemmed humeral component that may require a humeral osteotomy to remove and convert to a reverse total shoulder. I think that the humeral stem might be a little too proud to convert to reverse, but this would be an intraoperative decision. This again would be a very large surgery with a lot of potential complications. However, he states that his shoulder is dislocating 5-6 times daily, and this is very bothersome and painful to him. He would like to proceed with a revision total shoulder. We will have to get this scheduled. Risks, benefits, and alternatives of surgery were explained in detail. The surgical procedure, as well as postoperative recovery and rehabilitation, was also explained in detail. Risks include bleeding; infection; damage to surrounding structures such as nerves, blood vessels, and tendons that run in the area; persistent pain or stiffness; hardware failure; nonunion; malunion; dislocation; brachial plexus palsy; blood clots; or need for further surgery. The patient understands all of this and wishes to proceed with surgery. Informed consent was obtained. History of Present Illness Chief Complaint: Left shoulder instability Primary Care Provider: SARINA Shafer Mr. Cortez returns. Again, he is a 66-year-old old [id number] male with left shoulder pain and popping. He has had multiple previous surgeries on this left shoulder. He had a left total shoulder arthroplasty in November 2015, followed by a revision in February 2019 for fracture glenoid component, both by Dr. Perez. He reports that as soon as he went through the rehab for this left shoulder, he noticed this popping sensation in the left shoulder whenever he reaches to the side. He feels like it is popping out of place. He can easily get it to pop back into place. This is painful when this occurs, but he denies any pain on a regular basis other than during these popping episodes. He has never required a reduction under anesthesia for this. Previous operative reports were reviewed. He had a left anatomic total shoulder arthroplasty on 12/03/15. Humeral stem is an Exactech Equinoxe 11mm press-fit stem (110mm length). He then had a revision on 02/27/19 where the humeral head was exchanged but the stem was left in place and noted to be well fixed. The glenoid component was noted to be grossly loose, and this was replaced. Allergies Allergy/AdvReac Type Severity Reaction Status Date / Time No Known Allergies Allergy Verified 11/16/22 09:06 Home Medications Medication Instructions Recorded Confirmed Type aspirin 81 mg chewable tablet 81 mg PO .LUNCH 09/09/18 11/16/22 History ciclesonide 160 mcg/actuation 1 puff inhalation BID 09/09/18 11/16/22 History aerosol inhaler (Alvesco) gabapentin 800 mg tablet 800 mg PO TID 09/09/18 11/16/22 History cholecalciferol (vitamin D3) 125 5,000 unit PO DAILY 02/06/19 11/16/22 History mcg (5,000 unit) tablet (Vitamin D3) albuterol sulfate 90 mcg/actuation 1 inh inhalation QID PRN Wheezing 07/25/22 11/16/22 History aerosol inhaler ascorbic acid (vitamin C) 250 mg 250 mg PO BID 07/25/22 11/16/22 History tablet (Vitamin C) naproxen 500 mg tablet 500 mg PO BID PRN Pain 07/25/22 11/16/22 History sodium chloride 2.65 % nasal spray 1 spray intranasal BID 07/25/22 11/16/22 History aerosol (Backus Allergy and Sinus) Past Med/Surg History Medical History Anemia COPD (chronic obstructive pulmonary disease) GERD (gastroesophageal reflux disease) Hx of hepatitis HEP A/B= NO FURTHER DETAILS Neoplasm LUNG (S/P LT UPPER LOBECTOMY), TRACHEA, BRONCHUS Rheumatoid arthritis Surgical History History of arthroscopy of shoulder LEFT TSA= 12/03/15= GRADE 1 VIEW, MAC 3, ETT 8.0 AT [facility] History of lobectomy of lung 09/18/2018 - [facility] - LT VAT W/ LT UPPER LOBECTOMY + MEDIASTINAL LYMPHADENECTOMY - grade 1 view with Mac 3 and placement of 39 mohawk WILLI History of lung biopsy Social History Smoking Status: Unknown if ever smoked Preferred Language: Unknown Communication Ability: unknown Shaper Machine Hand Required: No Beliefs That Will Affect Care: None marital status: Unknown Current Living Situation: Other Current Living Situation Comment: [facility] [employer] [facility] Comment: unknown Physical Exam Physical Exam: Examination left shoulder reveals overall good range of motion. Rotator cuff strength is 5 out of 5 on external rotation. Supraspinatus stress testing reveals mild to moderate weakness. Internal rotation testing shows that the subscapularis is very weak. Anterior subluxation of the glenohumeral joint is easily palpable. Results & Data Diagnostic Findings Previous x-rays of the left shoulder from February 2022 were reviewed. They show a long-stemmed anatomic total shoulder arthroplasty. No evidence of hardware failure or loosening. No proximal migration of the humeral head. However, the humeral head does look anteriorly subluxated on the axillary view. Overall no significant change from comparison x-rays in October 2019.
[~2022-11-23 07:15] MED LIST: ACETAMINOPHEN 500 MG TAB PO SCH; BUPIVACAINE 0.5 % 5 MG/1 ML PF 10ML VIAL ONE; CeleBREX 200 MG CAP PO SCH; FAMOTIDINE 20 MG TAB PO SCH; GABAPENTIN 300 MG CAP PO SCH; LR 15ML/HR IV SCH; METOCLOPRAMIDE HCL 10 MG TABLET PO SCH; TRANEXAMIC ACID 1,000 MG **IV Pre-op IV SCH; ceFAZolin 2000MG 2,000 MG/15 ML SYR IV SCH; dexAMETHasone 4 MG TAB PO SCH
[2022-11-23 07:56] LABS: Basophils # (auto) 0.03 K/uL (0-0.2); Basophils % (auto) 0.5 %; Eosinophils # (auto) 0.11 K/uL (0-0.50); Hematocrit (blood only) 45.5 % (42.0-52.0); Immature Granulocytes # (auto) 0.03 K/uL (0.01-0.20); Immature Granulocytes % (auto) 0.5 %; Lymphocytes # (auto) 1.51 K/uL (1.2-3.4); Mean Corpuscular Hemoglobin 31.1 pg (25.0-34.0); Mean Corpuscular Volume 94.4 fL (80.0-100.0); Mean Platelet Volume 9.4 fL (9.4-12.4); Monocytes # (auto) 0.49 K/uL (0.11-0.59); Monocytes % (auto) 8.8 %; Neutrophils # (auto) 3.43 K/uL (1.40-6.50); Neutrophils % (auto) 61.2 %; Platelet Count 178 K/uL (130-400); RDW Coefficient of Variation 13.7 % (11.5-14.5); RDW Standard Deviation 47.4 fL (36.4-46.3); Red Blood Count 4.82 M/uL (4.70-6.10)
[2022-11-23 08:03] LABS: BUN Creatinine Ratio 23.5 (10-20); Calcium 9.1 mg/dl (8.5-10.1); Creatinine Clr Calc Pharmacy 98.5 ml/min; Est GFR (African American) 107.3 ml/min; Est GFR (Non-African American) 92.6 ml/min; Potassium 4.4 mmol/L (3.5-5.1)
--- NOTE | 2022-11-23 08:35 | History & Physical Bridge Note ---
Date of Service November 23, 2022 History & Physical Bridge Note I have examined the patient, reviewed the History & Physical and in the interval since the performance of the History & Physical I have noted the following changes of clinical significance: no changes noted
[2022-11-23] MEDS ORDERED: LIDOCAINE 2% MPF LOCAL 5 ML VIAL INFIL ONE (09:04)
[2022-11-23] MEDS ORDERED: PROPOFOL IV EMULSION 10 MG/ML 20 ML VIAL IV ONE (09:04)
[2022-11-23] MEDS ORDERED: MIDAZOLAM HCL 1 MG/ML 2ML VIAL ONE ×2 (09:05→16:32)
[2022-11-23] MEDS ORDERED: fentaNYL citrate PF 100 MCG/2 ML VIAL ONE (09:05)
[2022-11-23] MEDS ORDERED: DEXAMETHASONE SOD INJ 4 MG/ML VIAL ONE (09:06)
[2022-11-23] MEDS ORDERED: ONDANSETRON INJ 2 MG/ML 2 ML VIAL ONE (09:06)
[2022-11-23] MEDS ORDERED: fentaNYL citrate PF 100 MCG/2 ML VIAL IV PRN ×2 (10:14→16:29)
[2022-11-23] MEDS ORDERED: ONDANSETRON INJ 2 MG/ML 2 ML VIAL IV PRN ×3 (10:14→16:29)
[2022-11-23] MEDS ORDERED: ePHEDrine sulfate 50 MG/ML AMP IV PRN ×2 (10:14→16:29)
[2022-11-23] MEDS ORDERED: ATROPINE SULFATE 0.1 MG/ML 10ML SYR IV PRN ×2 (10:14→16:29)
[2022-11-23] MEDS ORDERED: PROMETHAZINE HCL 6.25 MG in SODIUM CHLORIDE 0.9% 50 ML IV PRN (10:14)
--- NOTE | 2022-11-23 13:22 | Post Operative Brief Note ---
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 Surgeon Peng Mcnamara MD Director Mobile Srinivasa Wilcox PA-C Estimated Blood Loss 100 Findings Consistent with Post-Op Diagnosis
--- NOTE | 2022-11-23 14:11 | Operative Report ---
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 Surgeon Peng Mcnamara MD Order Packer Or Packager Srinivasa Wilcox PA-C Estimated Blood Loss 100 Findings Consistent with Post-Op Diagnosis Specimens None Drains None Anesthesia Type General Regional Complications none Disposition Disposition: Recovery Room Indications Mr. Cortez is a 67-year-old male who previously underwent an anatomic total shoulder arthroplasty in 2016, followed by a revision in 2019 for a fractured glenoid component, both by Dr. Perez. After the second surgery he developed chronic persistent gross instability, with anterior dislocations at least 5-6 times per day, likely due to failure of previous subscapularis repair. History, clinical exam, and imaging were consistent with the above diagnosis. Risks, benefits, and alternatives of surgery were explained in detail. The patient understood all this and wished to proceed. Description of Procedure Components Implanted: Exactech Equinoxe Reverse Total Shoulder implants Glenoid baseplate with +10mm extended cage peg and 4.5mm peripheral screws x 6 Glenosphere: 38mm with central locking screw Humeral tray: +5mm thickness Polyethylene insert: 38mm, +2.5mm thickness Patient was identified in the preoperative holding area. Operative extremity was marked. Regional blockade was given by the Anesthesia Staff. Patient was then brought back to the operating room, and general anesthesia was induced without complication. Appropriate weight-based dose of Ancef was infused intravenously for antibiotic prophylaxis. The patient was then placed in the beachchair position. Left arm was then prepped and draped in a standard sterile fashion using Chlorhexidine prep. Previous deltopectoral incision was reopened. The cephalic vein was identified and retracted medially. Small branches to the deltoid were coagulated as necessary. I then divided through abundant scar through the deltopectoral interval. Previously placed nonabsorbable sutures were removed as they were encountered. I was careful to stay just lateral to the conjoint tendon and s uperior to the pectoralis tendon, but these structures were densely scarred to each other, making dissection rather difficult. I then opened the glenohumeral joint. There was some serous fluid within the joint, but most notable finding was obvious complete disruption of the previous subscapularis repair; there was no subscapularis tendon tissue attached to the lesser tuberosity of the humerus. There was gross anterior instability of the glenohumeral joint, clearly secondary to the failure of the previous subscapularis repair. Previously placed nonabsorbable sutures in the lesser tuberosity were removed as they were encountered. Medially, deep to the dense scar tissue of the pectoralisconjoint tendon, I encountered the disrupted and retracted stump of the subscapularis tendon, with a few attached bony fragments, presumably avulsed from the lesser tuberosity. There were also some disrupted nonabsorbable sutures within the subscapularis tendon stump that were removed as they were encountered. The supraspinatus tendon was found to be intact, and this was divided to allow the glenohumeral joint to dislocate and proceed with the reverse total shoulder arthroplasty. There was abundant synovitis and scar tissue within the glenohumeral joint that was aggressively but carefully circumferentially debrided as it was encountered. Glenoid and humeral components were found to be stable. I first removed the anatomic humeral head; this was from the [place] taper of the replicator plate with a wedge fork. Replicator plate was then removed from the humeral stem. Humeral stem was found to be stable. Scar tissue was excised circumferentially around the proximal humerus. I did find a very large retained posterior humeral osteophyte; this was removed with osteotomes and rongeur. A protective cap was then placed over the humeral stem and proximal humeral metaphysis. I then turned my attention to the glenoid. Retractors were placed and circumferential soft tissue debridement was performed. I then used a curved osteotome to remove the polyethylene glenoid component. I was very careful to avoid fracturing the underlying glenoid; I broke the glenoid polyethylene apart in piecemeal fashion with an osteotome and sequentially removed loose pieces as they were developed. As I was removing the glenoid component, it became clear that there was an abundant amount of bone cement within the glenoid itself. There seemed to be quite a bit more cement than just around the peripheral glenoid pegs. I then used an osteotome to break apart the retained bone cement in the glenoid. I was surprised at the amount of bone cement in the center of the glenoid. I was very careful to break apart the bone cement and remove it while avoiding fracture of the surrounding glenoid bone. After all the cement was removed, I was left with a very large defect in the center of the glenoid. The bone around the periphery of the glenoid was intact, but there was a very large central defect in the glenoid, and a smaller defect more superiorly around the previous superior peripheral glenoid peg. The central defect measured about 2 cm in diameter and about 1.5 cm deep were there was complete absence of bone. The more superior defect was smaller, but still about approximately 6-8 mm in diameter. Fibrous scar tissue within these bony defects was aggressively debrided with curette and rongeur down to cancellous bone. With the very large bony defect in the center of the glenoid, I felt that augmentation to fill the bony defect would be required. I elected not to fill the void with bone graft, as this would require prolonged activity restrictions to allow this bone graft to heal, and this likely would not be feasible with this patient's incarcerated status. I therefore planned to fill the defect with bone cement as had previously been done with the anatomic glenoid component. I had originally planned to use a small size baseplate and place it more superior to ensure that I could reduce reverse total shoulder components without revising the humeral stem, but I felt that the smaller baseplate would not be stable with this large bony defect. I therefore decided to use the standard size baseplate. The baseplate drill guide was held in proper position on the glenoid, although it was difficult to hold the guide in proper position while drilling given the very large underlying bony defects. It was therefore temporarily pinned in place to prevent shifting while drilling. I planned to use a +10mm extended cage central peg to provide additional stability, and corresponding drill bit was passed through the drill guide. The real baseplate was then placed directly into the drilled hole for the central peg, but not impacted. I then mixed bone cement and filled the glenoid bony defects with bone cement, then fully impacted the glenoid baseplate. Excess cement was removed, and I quickly drilled the 6 peripheral screw holes and placed the 6 peripheral 4.5 mm nonlocking screws. Locking caps were then placed over each of the screws prior to cement curing; I was able to place 5 of the 6 locking caps, but the inferior most locking cap could not be threaded. I then ensured all excess cement was removed circumferentially around the glenoid baseplate, and there were no bony osteophytes that would impede glenosphere implantation. I then selected a 38 mm glenosphere as an appropriate size. It was placed in proper position, and central locking screw was then inserted and tightened down. After the revision of the glenoid components was complete, I then turned my attention to the humeral components. I first placed a +0 mm humeral tray and +0 mm trial polyethylene component to ensure that I could reduce the reverse total shoulder arthroplasty components without revising the humeral stem. I was able to easily reduce the shoulder, and it was surprisingly loose. I therefore did not have to remove the humeral stem for recut; the humeral stem was left in place. I then placed augmented humeral tray and polyethylene spacer trial components as necessary to achieve proper stability of the shoulder. Trial reduction was carried out. Once I achieved acceptable joint stability and range of motion with the trial implants, the final humeral components were implanted. I then took the shoulder through full range of motion to ensure good stability and acceptable motion. Wound was then copiously irrigated with sterile saline. Deep fascia was closed with 0 V-lock suture. Subcutaneous tissue was closed with 2-0 V-lock, and skin was closed with 3-0 V-lock. Skin was then sealed with Dermabond. Sterile dressings were then applied with a waterproof silver-impregnated dressing, and the arm was placed into a sling. The patient was awakened from anesthesia and taken to the Post Anesthesia Care Unit in stable condition. There were no immediate complications from the procedure. I was present and scrubbed for the entire procedure, with the exception of final skin closure and dressing application. Due to the complex nature of the procedure, the entire surgery was performed with the operational assistance of Srinivasa Wilcox PA-C. The pediatric physical therapy assistant, under direct supervision, was involved in the performance of all aspects of the surgical procedure including hemostasis, tissue incision and retraction, instrument management, patient positioning, and wound closure. I attest to the content of the Intraoperative Record and any orders documented therein. Any exceptions are noted below.
--- NOTE | 2022-11-23 14:23 | Anesthesiology Progress Note ---
Date of Service November 23, 2022 Anesthesia Post Procedure Vital Signs Vital Signs: Temp Pulse Pulse Resp BP Pulse Ox O2 Del Method 11/23/22 13:50 84 18 126/82 93 Room Air 11/23/22 13:40 85 20 133/86 98 Oxymask 11/23/22 14:10 84 18 126/81 93 Nasal Cannula 11/23/22 14:00 36.1 C L 89 20 124/87 93 Room Air 11/23/22 13:30 86 16 109/86 98 Oxymask 11/23/22 13:29 36.5 C 96 H 14 100/78 97 Oxymask 11/23/22 07:33 36.4 C L 64 16 144/93 H 94 Room Air O2 Flow Rate 11/23/22 13:50 11/23/22 13:40 3 11/23/22 14:10 2 11/23/22 14:00 11/23/22 13:30 6 11/23/22 13:29 6 11/23/22 07:33 Transfer of Care Handoff Completed per policy Notes Mental Status: alert / awake / arousable Patient Amnestic to Procedure: Yes Nausea / Vomiting: adequately controlled Pain: adequately controlled Airway Patency, RR, SpO2: stable & adequate BP & HR: stable & adequate Hydration State: stable & adequate Anesthetic Complications: no major complications apparent
[2022-11-23] MEDS ORDERED: NALOXONE HCL 0.4 MG/1 ML VIAL/CARP IV PRN (14:40)
[2022-11-23] MEDS ORDERED: MAGNESIUM HYDROXIDE SUSP 30 ML UDC PO PRN (14:40)
[2022-11-23] MEDS ORDERED: METOCLOPRAMIDE HCL INJ 5 MG/ML 2 ML VIAL IV PRN (14:40)
[2022-11-23] MEDS ORDERED: bisacodyL 10 MG SUPP PR PRN (14:40)
[2022-11-23] MEDS: SODIUM CHLORIDE 0.9% 1000ML 1,000 ML IV SCH ×2 (14:56→18:09)
--- NOTE | 2022-11-23 15:29 | XRay Report ---
XR shoulder LT min 2V routine CLINICAL HISTORY: Post shoulder surgery COMPARISON: Left shoulder radiograph February 27, 2019. FINDINGS: Reverse total left shoulder arthroplasty is noted. There is superior dislocation of the hu meral component with respect to the acetabular component. No fractures are identified. There are no u nexpected radiopaque foreign bodies. IMPRESSION: Superior dislocation of the humeral component of the left shoulder arthroplasty. No perip rosthetic fracture. Findings discussed with Srinivasa Wilcox at time of dictation. ACT 112: Negative or not required by law. Electronically signed by: Shiraz Rojas M.D. 11/23/2022 3:27 PM
[2022-11-23] MEDS: GABAPENTIN 800 MG TAB PO SCH ×2 (15:43→21:10)
--- NOTE | 2022-11-23 16:13 | Orthopedic Progress Note ---
Date of Service November 23, 2022 Assessment & Plan (1) Dislocation of shoulder, left, closed: Plan: Patient just underwent a complicated revision of an anatomic total shoulder to reverse total shoulder arthroplasty. Intraoperatively, it was felt that the implants were stable. Unfortunately, immediate postoperative x-rays show dislocation of the reverse total shoulder arthroplasty. I recommended emergent attempt at closed reduction of his total shoulder. However, he will likely need another revision surgery to upsize his implants to prevent further dislocation. This will have to be another day after the instrumentation sets are resterilized. Patient understands and is agreeable to this plan. Admission and Anticipated Discharge Date Admission Date: November 23, 2022 Subjective Patient resting comfortably. Denies any significant pain in his left shoulder. He denies ever feeling his shoulder come out of place. His regional nerve block seems to still be functioning. He is unable to feel light touch or temperature, but does have motor control in his hand. No axillary or musculocutaneous motor function yet. Physical Exam Physical Exam: Left shoulder dressings are clean, dry, intact. He does have a notable deformity of the left shoulder consistent with an anterior dislocation of his reverse total shoulder implants. Results & Data Vital Signs (Past 12 Hours) Vital Signs Temp Pulse Pulse Resp BP Pulse Ox O2 Del Method 11/23/22 15:44 36.5 C 85 17 126/79 97 Nasal Cannula 11/23/22 15:10 36.6 C 82 16 121/79 97 Nasal Cannula 11/23/22 14:40 36.6 C 82 17 117/78 95 Nasal Cannula 11/23/22 13:50 84 18 126/82 93 Room Air 11/23/22 13:40 85 20 133/86 98 Oxymask 11/23/22 14:20 83 20 119/82 93 Nasal Cannula 11/23/22 14:10 84 18 126/81 93 Nasal Cannula 11/23/22 14:00 36.1 C L 89 20 124/87 93 Room Air 11/23/22 13:30 86 16 109/86 98 Oxymask 11/23/22 13:29 36.5 C 96 H 14 100/78 97 Oxymask 11/23/22 07:33 36.4 C L 64 16 144/93 H 94 Room Air O2 Flow Rate 11/23/22 15:44 2 11/23/22 15:10 2 11/23/22 14:40 2 11/23/22 13:50 11/23/22 13:40 3 11/23/22 14:20 2 11/23/22 14:10 2 11/23/22 14:00 11/23/22 13:30 6 11/23/22 13:29 6 11/23/22 07:33 Diagnostic Findings Postoperative x-rays unfortunately show dislocation of his reverse total shoulder arthroplasty. No fractures noted.
--- NOTE | 2022-11-23 16:26 | Anesthesiology Consultation ---
Date of Service November 23, 2022 Assessment & Plan ASA ASA3 Proposed Anesthesia Anesthesia Type: MAC Risk / Benefits Reviewed With: PT / POA / Parent / Guardian, Accepts Plan and Informed Consent Obtained Additional Comments: pt deemed emergent by surgeon. we will only do a light sedation History Surgery Operation Date: 11/23/22 09:10 Proposed Procedures p Left Shoulder Revision Reverse Total Shoulder Replacement - Peng Mcnamara M.D. Operation Date: 11/23/22 22:30 Proposed Procedures p Closed Reduction versus Open ORIF Left Shoulder - Peng Mcnamara M.D. Height/Weight Height: 6 ft Weight: 87.203 kg Allergies Allergy/AdvReac Type Severity Reaction Status Date / Time No Known Allergies Allergy Verified 11/23/22 07:29 Medications Home Medications Medication Instructions Recorded Confirmed Last Taken aspirin 81 mg chewable tablet 81 mg PO .LUNCH 09/09/18 11/23/22 11/20/22 ciclesonide 160 mcg/actuation 1 puff inhalation BID 09/09/18 11/23/22 11/22/22 aerosol inhaler (Alvesco) gabapentin 800 mg tablet 800 mg PO TID 09/09/18 11/23/22 11/22/22 19:30 cholecalciferol (vitamin D3) 125 5,000 unit PO DAILY 02/06/19 11/23/22 11/22/22 08:00 mcg (5,000 unit) tablet (Vitamin D3) albuterol sulfate 90 mcg/actuation 1 inh inhalation QID PRN Wheezing 07/25/22 11/23/22 11/23/22 05:15 aerosol inhaler ascorbic acid (vitamin C) 250 mg 250 mg PO BID 07/25/22 11/23/22 11/22/22 08:00 tablet (Vitamin C) naproxen 500 mg tablet 500 mg PO BID PRN Pain 07/25/22 11/23/22 11/22/22 08:00 sodium chloride 2.65 % nasal spray 1 spray intranasal BID 07/25/22 11/23/22 11/22/22 08:00 aerosol ([facility]) Active Medications Generic Name Dose Route Start Last Admin Trade Name Freq PRN Reason Stop Dose Admin Gabapentin 800 mg 11/23/22 14:40 11/23/22 15:43 Gabapentin 800 Mg Tab PO 12/23/22 14:39 800 mg TID ERROL Administration Sodium Chloride 1,000 mls @ 100 mls/hr 11/23/22 14:40 11/23/22 14:56 Nss 1000ml IV 11/24/22 06:00 100 mls/hr .Q10H ERROL Administration NPO Date Last Intake of Fluids: 11/23/22 Time Last Intake of Fluids: 15:00 Date Last Intake of Solids: 11/23/22 Time Last Intake of Solids: 15:00 Past Medical History Medical History Anemia COPD (chronic obstructive pulmonary disease) GERD (gastroesophageal reflux disease) Hx of hepatitis HEP A/B= NO FURTHER DETAILS Neoplasm LUNG (S/P LT UPPER LOBECTOMY), TRACHEA, BRONCHUS Rheumatoid arthritis Exercise / Class Metabolic Activity II 4-5 Yardwork/Stairs/Walk up hill Past Surgical History Surgical History History of arthroscopy of shoulder LEFT TSA= 12/03/15= GRADE 1 VIEW, MAC 3, ETT 8.0 AT [facility] History of lobectomy of lung 09/18/2018 - [facility] - LT VAT W/ LT UPPER LOBECTOMY + MEDIASTINAL LYMPHADENECTOMY - grade 1 view with Mac 3 and placement of 39 surinamese WILLI History of lung biopsy Past Anesthesia History No Hx of Anesthesia Complications and No Family Hx of Anesthesia Complications History of PONV No Hx of PONV and No Hx of Motion Sickness Social History Smoking Status: Unknown if ever smoked tobacco type: cigarettes substance use type: does not use Review of Systems denies fever/cough/ colds/ chest pain/ SOB/ SAIRA denies SAIRA Physical Exam Vital Signs Last Vital Signs Temp 36.5 C 11/23/22 15:44 Pulse 85 11/23/22 15:44 Resp 17 11/23/22 15:44 BP 126/79 11/23/22 15:44 Pulse Ox 97 11/23/22 15:44 O2 Del Method Nasal Cannula 11/23/22 15:44 O2 Flow Rate 2 11/23/22 15:44 ENMT Mouth: no TMJ abnormality and no dentition abnormality Thyromental Distance: > or= 3.5 Finger Breadths Mallampati Class: II Neck neck extension not limited Respiratory normal respiratory effort; no respiratory distress Auscultation: lungs clear to auscultation bilaterally Cardiovascular Rate/Rhythm: regular rate and regular rhythm Musculoskeletal pt able to move fingers on left side. pt without sensory of shoulder. Neurologic moves all extremities Psychiatric Orientation: alert and oriented x 3 Testing Laboratory Results 11/23/22 07:35 11/23/22 07:35 Blood Type A Positive 11/23/22 07:35 Antibody Screen NEGATIVE 11/23/22 07:35
--- NOTE | 2022-11-23 17:02 | Operative Report ---
Post Operative Report Pre & Post Diagnosis Operation Date: 11/24/22 07:00 Preop Diagnosis: Left shoulder dislocation of revision reverse total shoulder arthroplasty Postop Diagnosis: Left shoulder dislocation of revision reverse total shoulder arthroplasty I identified the patient and participated in the time-out.: Yes Procedure Operation Date: 11/24/22 07:00 Left shoulder closed reduction of dislocated revision reverse total shoulder arthroplasty (51645) - Peng Mcnamara MD Surgeon Peng Mcnamara MD Color Developer Srinivasa Wilcox PA-C Estimated Blood Loss 100 Findings Consistent with Post-Op Diagnosis Specimens None Drains None Anesthesia Type MAC Complications none Disposition Disposition: Recovery Room Indications Mr. Cortez is a 67-year-old male who just underwent a large complicated revision total shoulder arthroplasty with conversion of an unstable anatomic total shoulder arthroplasty to a reverse. Unfortunately, immediate postoperative x-rays showed dislocation of his reverse total shoulder arthroplasty, and emergent attempt at closed reduction was recommended. Risks, benefits, and alternatives of surgery were explained in detail. The patient understood all this and wished to proceed. Description of Procedure Patient was identified in the preoperative holding area. Operative extremity was marked. Previously placed regional blockade was still functioning. Patient was then brought back to the operating room. Patient was given a light anxiolytic for the reduction procedure, but no anesthesia was given. Previously placed dressings were left in place. He was positioned on the operating room table, and traction was applied to the left upper arm while providing countertraction against his chest wall. With traction and rotation, I was able to easily reduce the reverse total shoulder arthroplasty components. This was confirmed under fluoroscopic imaging. I did take the shoulder through range of motion, and it did seem stable throughout the motion without recurrent instability. However, again due to the immediate dislocation after surgery earlier today and the ease of reduction during this procedure, I will plan to upsize the humeral components to provide additional tension on the soft tissues to hopefully prevent recurrent dislocation. We will plan to do this tomorrow after the instrumentation is resterilized. There were no immediate complications from the procedure. I was present for the entire procedure. Due to the complex nature of the procedure, the entire surgery was performed with the operational assistance of Srinivasa Wilcox PA-C. The sales operations assistant, under direct supervision, was involved in the performance of all aspects of the surgical procedure including patient positioning and counter-traction during reduction. I attest to the content of the Intraoperative Record and any orders documented therein. Any exceptions are noted below.
--- NOTE | 2022-11-23 17:34 | Anesthesiology Progress Note ---
Date of Service November 23, 2022 Anesthesia Post Procedure Vital Signs Vital Signs: Temp Pulse Pulse Resp BP Pulse Ox O2 Del Method 11/23/22 17:30 36.7 C 88 17 132/72 94 Room Air 11/23/22 17:20 36.7 C 83 17 134/84 94 Room Air 11/23/22 17:10 36.5 C 84 20 131/90 100 Nasal Cannula 11/23/22 17:00 36.5 C 87 13 121/83 99 Nasal Cannula 11/23/22 16:54 36.5 C 84 15 131/89 96 Nasal Cannula 11/23/22 16:15 36.5 C 75 18 145/72 H 98 Room Air 11/23/22 15:44 36.5 C 85 17 126/79 97 Nasal Cannula 11/23/22 15:10 36.6 C 82 16 121/79 97 Nasal Cannula 11/23/22 14:40 36.6 C 82 17 117/78 95 Nasal Cannula 11/23/22 13:50 84 18 126/82 93 Room Air 11/23/22 13:40 85 20 133/86 98 Oxymask 11/23/22 14:20 83 20 119/82 93 Nasal Cannula 11/23/22 14:10 84 18 126/81 93 Nasal Cannula 11/23/22 14:00 36.1 C L 89 20 124/87 93 Room Air 11/23/22 13:30 86 16 109/86 98 Oxymask 11/23/22 13:29 36.5 C 96 H 14 100/78 97 Oxymask 11/23/22 07:33 36.4 C L 64 16 144/93 H 94 Room Air O2 Flow Rate 11/23/22 17:30 11/23/22 17:20 11/23/22 17:10 3 11/23/22 17:00 3 11/23/22 16:54 3 11/23/22 16:15 11/23/22 15:44 2 11/23/22 15:10 2 11/23/22 14:40 2 11/23/22 13:50 11/23/22 13:40 3 11/23/22 14:20 2 11/23/22 14:10 2 11/23/22 14:00 11/23/22 13:30 6 11/23/22 13:29 6 11/23/22 07:33 Transfer of Care Handoff Completed per policy Notes Mental Status: alert / awake / arousable and participated in evaluation Patient Amnestic to Procedure: Yes Nausea / Vomiting: adequately controlled Pain: adequately controlled Airway Patency, RR, SpO2: stable & adequate BP & HR: stable & adequate Hydration State: stable & adequate Anesthetic Complications: no major complications apparent and Pt Satisfied with anesthetic care
[2022-11-23] MEDS: ACETAMINOPHEN 500 MG TAB PO SCH (18:14)
[2022-11-23] MEDS: ceFAZolin 2000MG 2,000 MG/15 ML SYR IV SCH (19:30)
[2022-11-23] MEDS: ASCORBIC ACID 500 MG TAB PO SCH (21:02)
[2022-11-23] MEDS: DOCUSATE SODIUM 100 MG CAP PO SCH (21:07)
[2022-11-23] MEDS: SENNA 8.6 MG TAB PO SCH (21:08)
[2022-11-23] MEDS: IBUPROFEN 600 MG TAB PO SCH (21:09)
[2022-11-23] MEDS: oxyCODONE HCL IR 5 MG TAB (IMMEDIATE RELEASE) PO PRN (22:35)
[2022-11-24] MEDS: ACETAMINOPHEN 500 MG TAB PO SCH ×5 (00:07→23:32)
[2022-11-24] MEDS: IBUPROFEN 600 MG TAB PO SCH ×4 (03:00→20:25)
[2022-11-24] MEDS: ceFAZolin 2000MG 2,000 MG/15 ML SYR IV SCH (03:00)
[2022-11-24] MEDS: oxyCODONE HCL IR 5 MG TAB (IMMEDIATE RELEASE) PO PRN ×3 (03:54→21:55)
[2022-11-24] MEDS: SODIUM CHLORIDE 0.9% 1000ML 1,000 ML IV SCH (03:54)
[2022-11-24] MEDS ORDERED: BUPIVACAINE 0.5 % 5 MG/1 ML PF 10ML VIAL ONE (07:46)
[2022-11-24] MEDS: FLUTICASONE FUROATE 200MCG 14 PUFFS/INHALER INH SCH (08:26)
[2022-11-24] MEDS: MULTIVITAMIN TAB PO SCH (08:27)
[2022-11-24] MEDS: DOCUSATE SODIUM 100 MG CAP PO SCH ×2 (08:27→20:24)
[2022-11-24] MEDS: CHOLECALCIFEROL 5,000 UNITS 125 MCG TAB PO SCH (08:27)
[2022-11-24] MEDS: GABAPENTIN 800 MG TAB PO SCH ×3 (08:28→20:25)
[2022-11-24] MEDS: ASPIRIN 325 MG ECTAB PO SCH (08:28)
[2022-11-24] MEDS: ASCORBIC ACID 500 MG TAB PO SCH ×2 (08:28→20:23)
[2022-11-24 09:09] LABS: Basophils # (auto) 0.01 K/uL (0-0.2); Basophils % (auto) 0.1 %; Hematocrit (blood only) 37.3 % (42.0-52.0); Hemoglobin 12.7 g/dl (14.0-18.0); Immature Granulocytes # (auto) 0.05 K/uL (0.01-0.20); Immature Granulocytes % (auto) 0.5 %; Lymphocytes # (auto) 0.95 K/uL (1.2-3.4); Lymphocytes % (auto) 8.9 %; Mean Corpuscular Hemoglobin 31.3 pg (25.0-34.0); Mean Corpuscular Volume 91.9 fL (80.0-100.0); Mean Platelet Volume 9.6 fL (9.4-12.4); Monocytes # (auto) 0.85 K/uL (0.11-0.59); Monocytes % (auto) 7.9 %; Neutrophils # (auto) 8.86 K/uL (1.40-6.50); Neutrophils % (auto) 82.6 %; Platelet Count 163 K/uL (130-400); RDW Coefficient of Variation 13.6 % (11.5-14.5); RDW Standard Deviation 46.5 fL (36.4-46.3); Red Blood Count 4.06 M/uL (4.70-6.10); White Blood Count 10.72 K/ul (4.8-10.8)
[2022-11-24 09:24] LABS: Calcium 8.9 mg/dl (8.5-10.1); Creatinine Clr Calc Pharmacy 87.6 ml/min; Est GFR (African American) 101.4 ml/min; Est GFR (Non-African American) 87.5 ml/min; Potassium 4.6 mmol/L (3.5-5.1)
--- NOTE | 2022-11-24 11:07 | Orthopedic Progress Note ---
Date of Service November 24, 2022 Assessment & Plan (1) Status post total shoulder arthroplasty: Plan: Pt is POD #1 s/p left shoulder revision of anatomic total shoulder arthroplasty to reverse total shoulder arthroplasty and subsequently emergent closed reduction due to dislocation post-operatively. -Pt is scheduled for surgical intervention later today for revision of arthroplasty. -Keep NPO for now, will resume diet post-operatively -Pain regime as written Admission and Anticipated Discharge Date Admission Date: November 23, 2022 Subjective Pt is POD #1 s/p left shoulder revision of anatomic total shoulder arthroplasty to reverse total shoulder arthroplasty. -Unfortunately pot-operatively pt's XRs revealed dislocation of his reverse total shoulder arthroplasty and he ultimately undewent emergent closed reduction. -Pt this morning is doing well, states his block has worn off and he is having some increased pain but pain medication is taking the edge off. -He otherwise denies any CP, SOB, fever, chills, N/V Review of Systems Review of Systems: All systems reviewed & are unremarkable except as noted in Subjective Physical Exam Physical Exam: LUE with sling and dressing in place. Area is c/d/i. He is able to wiggle his fingers without issue, able to give thumbs up, good ROM of wrist, states nerve block has worn off, denies numbness or tingling, distal perfusion and sensation grossly intact. Results & Data Vital Signs (Past 12 Hours) Vital Signs Temp Pulse Resp BP Pulse Ox O2 Del Method 11/24/22 08:25 36.5 C 73 18 121/81 92 Room Air 11/24/22 03:07 36.6 C 82 18 123/78 92 Room Air Laboratory Results Laboratory Results WBC 10.72 K/ul (4.8-10.8) 11/24/22 08:27 RBC 4.06 M/uL (4.70-6.10) L 11/24/22 08:27 Hgb 12.7 g/dl (14.0-18.0) L 11/24/22 08:27 Hct 37.3 % (42.0-52.0) L 11/24/22 08:27 MCV 91.9 fL (80.0-100.0) 11/24/22 08:27 MCH 31.3 pg (25.0-34.0) 11/24/22 08:27 MCHC 34.0 g/dL (32.0-36.0) 11/24/22 08:27 RDW Std Deviation 46.5 fL (36.4-46.3) H 11/24/22 08:27 RDW Coeff of Magdal[place] 13.6 % (11.5-14.5) 11/24/22 08:27 Plt Count 163 K/uL (130-400) 11/24/22 08:27 MPV 9.6 fL (9.4-12.4) 11/24/22 08:27 Immature Gran % (Auto) 0.5 % 11/24/22 08:27 Neut % (Auto) 82.6 % 11/24/22 08:27 Lymph % (Auto) 8.9 % 11/24/22 08:27 [place] % (Auto) 7.9 % 11/24/22 08:27 Eos % (Auto) 0.0 % 11/24/22 08:27 Baso % (Auto) 0.1 % 11/24/22 08:27 Neut # (Auto) 8.86 K/uL (1.40-6.50) H 11/24/22 08:27 Lymph # (Auto) 0.95 K/uL (1.2-3.4) L 11/24/22 08:27 [place] # (Auto) 0.85 K/uL (0.11-0.59) H 11/24/22 08:27 Eos # (Auto) 0.00 K/uL (0-0.50) 11/24/22 08:27 Baso # (Auto) 0.01 K/uL (0-0.2) 11/24/22 08:27 Immature Gran # (Auto) 0.05 K/uL (0.01-0.20) 11/24/22 08:27 Sodium 137 mmol/L (136-145) 11/24/22 08:27 Potassium 4.6 mmol/L (3.5-5.1) 11/24/22 08:27 Chloride 102 mmol/L (98-107) 11/24/22 08:27 Carbon Dioxide 31 mmol/L (21-32) 11/24/22 08:27 Anion Gap 4 (3-11) 11/24/22 08:27 BUN 20 mg/dl (6-23) 11/24/22 08:27 Creatinine 0.91 mg/dl (0.6-1.4) 11/24/22 08:27 Est Cr Clr Drug Dosing 87.6 ml/min 11/24/22 08:27 Est GFR ( Amer) 101.4 ml/min 11/24/22 08:27 Est GFR (Non-Af Amer) 87.5 ml/min 11/24/22 08:27 BUN/Creatinine Ratio 22.0 (10-20) H 11/24/22 08:27 Glucose 115 mg/dl (70-99(Fasting)) H 11/24/22 08:27 Calcium 8.9 mg/dl (8.5-10.1) 11/24/22 08:27 Nasal Screen MRSA (PCR) Negative (Negative) 11/23/22 18:21 SARS-CoV-2, RNA, NAAT NEGATIVE (NEGATIVE) 11/23/22 07:25 Blood Type A Positive 11/23/22 07:35 Antibody Screen NEGATIVE 11/23/22 07:35 Impressions Shoulder X-Ray 11/23/22 13:34 XR shoulder LT min 2V routine CLINICAL HISTORY: Post shoulder surgery COMPARISON: Left shoulder radiograph February 27, 2019. FINDINGS: Reverse total left shoulder arthroplasty is noted. There is superior dislocation of the humeral component with respect to the acetabular component. No fractures are identified. There are no unexpected radiopaque foreign bodies. IMPRESSION: Superior dislocation of the humeral component of the left shoulder arthroplasty. No periprosthetic fracture. Findings discussed with Srinivasa Wilcox at time of dictation. ACT 112: Negative or not required by law. Electronically signed by: Shiraz Rojas M.D. 11/23/2022 3:27 PM (1) Status post total shoulder arthroplasty Laterality: left Qualified Code(s): Z96.612 - Presence of left artificial shoulder joint
--- NOTE | 2022-11-24 12:39 | Fluoroscopy Report ---
FL shoulder LT min 2V CLINICAL HISTORY: LT SHOULDER COMPARISON STUDY: Left shoulder radiographs November 23, 2022. FLUOROSCOPY TIME: 4.3 seconds. EXPOSURE DOSE: 0.4574 mGy FLUOROSCOPIC IMAGES: 1 FINDINGS: Fluoroscopy was provided during reduction of the left arthroplasty. Alignment appears anato odilon on this single AP projection. No acute fracture is identified by fluoroscopy. A calcific density along the proximal shaft of the left humerus was present on prior radiographs. IMPRESSION: Fluoroscopy provided during left shoulder arthroplasty reduction. Anatomic alignment. ACT 112: Negative or not required by law. Electronically signed by: Shiraz Rojas M.D. 11/24/2022 12:38 PM
[2022-11-24] MEDS ORDERED: ONDANSETRON INJ 2 MG/ML 2 ML VIAL ONE (14:57)
[2022-11-24] MEDS ORDERED: DEXAMETHASONE SOD INJ 4 MG/ML VIAL ONE (14:57)
[2022-11-24] MEDS ORDERED: PROPOFOL IV EMULSION 10 MG/ML 20 ML VIAL IV ONE (14:57)
[2022-11-24] MEDS ORDERED: LIDOCAINE 2% MPF LOCAL 5 ML VIAL INFIL ONE (14:57)
[2022-11-24] MEDS ORDERED: MIDAZOLAM HCL 1 MG/ML 2ML VIAL ONE (14:58)
[2022-11-24] MEDS ORDERED: fentaNYL citrate PF 100 MCG/2 ML VIAL ONE (14:58)
[2022-11-24] MEDS ORDERED: ceFAZolin 2000MG 2,000 MG/15 ML SYR IV ONE (15:39)
--- NOTE | 2022-11-24 16:51 | History & Physical Bridge Note ---
Date of Service November 24, 2022 History & Physical Bridge Note I have examined the patient, reviewed the History & Physical and in the interval since the performance of the History & Physical I have noted the following changes of clinical significance: Patient had postoperative dislocation of his reverse total shoulder arthroplasty. This easily reduced with a closed reduction in the operating room immediately after surgery. We are planning for revision of his humeral and glenoid components to put in larger spacers to increase his soft tissue tension and hopefully prevent recurrent dislocation. He is in agreement with this plan. Risks, benefits, and alternatives of surgery were explained in detail. The surgical procedure, as well as postoperative recovery and rehabilitation, was also explained in detail. Risks include bleeding; infection; damage to surrounding structures such as nerves, blood vessels, and tendons that run in the area; persistent pain, weakness, or stiffness; recurrent instability; brachial plexus palsy; or need for further surgery. The patient understands all of this and wishes to proceed with surgery. Informed consent was obtained.
[2022-11-24] MEDS ORDERED: ATROPINE SULFATE 0.1 MG/ML 10ML SYR IV PRN (17:54)
[2022-11-24] MEDS ORDERED: ePHEDrine sulfate 50 MG/ML AMP IV PRN (17:54)
[2022-11-24] MEDS ORDERED: ONDANSETRON INJ 2 MG/ML 2 ML VIAL IV PRN (17:54)
--- NOTE | 2022-11-24 17:54 | Anesthesiology Consultation ---
Date of Service November 24, 2022 Assessment & Plan Chart Review Chart Review: Acceptable Risk for Surgery and Patient NOT seen in Pre Admission Testing Consults Requested none History Surgery Operation Date: 11/23/22 09:10 Proposed Procedures p Left Shoulder Revision Reverse Total Shoulder Replacement - Peng Mcnamara M.D. Operation Date: 11/23/22 22:30 Proposed Procedures p Closed Reduction versus Open ORIF Left Shoulder - Peng Mcnamara M.D. Operation Date: 11/24/22 07:00 Proposed Procedures p Revise Humeral Component Left Shoulder - Peng Mcnamara M.D. Height/Weight Height: 6 ft Weight: 87.203 kg Allergies Allergy/AdvReac Type Severity Reaction Status Date / Time No Known Allergies Allergy Verified 11/23/22 07:29 Medications Home Medications Medication Instructions Recorded Confirmed Last Taken aspirin 81 mg chewable tablet 81 mg PO .LUNCH 09/09/18 11/23/22 11/20/22 ciclesonide 160 mcg/actuation 1 puff inhalation BID 09/09/18 11/23/22 11/22/22 aerosol inhaler (Alvesco) gabapentin 800 mg tablet 800 mg PO TID 09/09/18 11/23/22 11/22/22 19:30 cholecalciferol (vitamin D3) 125 5,000 unit PO DAILY 02/06/19 11/23/22 11/22/22 08:00 mcg (5,000 unit) tablet (Vitamin D3) albuterol sulfate 90 mcg/actuation 1 inh inhalation QID PRN Wheezing 07/25/22 11/23/22 11/23/22 05:15 aerosol inhaler ascorbic acid (vitamin C) 250 mg 250 mg PO BID 07/25/22 11/23/22 11/22/22 08:00 tablet (Vitamin C) naproxen 500 mg tablet 500 mg PO BID PRN Pain 07/25/22 11/23/22 11/22/22 08:00 sodium chloride 2.65 % nasal spray 1 spray intranasal BID 07/25/22 11/23/22 11/22/22 08:00 aerosol ([facility]) Active Medications Generic Name Dose Route Start Last Admin Trade Name Freq PRN Reason Stop Dose Admin Acetaminophen 500 mg 11/23/22 18:00 11/24/22 12:11 Acetaminophen 500 Mg Tab PO 12/23/22 17:59 500 mg Q6 ERROL Administration Ascorbic Acid 250 mg 11/23/22 21:00 11/24/22 08:28 Ascorbic Acid 500 Mg Tab PO 12/23/22 20:59 250 mg BID ERROL Administration Aspirin 325 mg 11/24/22 09:00 11/24/22 08:28 Aspirin 325 Mg Ectab PO 12/24/22 08:59 325 mg QAM ERROL Administration Docusate Sodium 100 mg 11/23/22 21:00 11/24/22 08:27 Docusate Sodium 100 Mg Cap PO 12/23/22 20:59 Not Given BID ERROL Fluticasone Furoate 1 puffs 11/24/22 09:00 11/24/22 08:26 Fluticasone Furoate 200mcg 14 Puffs/Inhaler INH 12/24/22 08:59 1 puffs DAILY ERROL Administration Gabapentin 800 mg 11/23/22 14:40 11/24/22 14:37 Gabapentin 800 Mg Tab PO 12/23/22 14:39 800 mg TID ERROL Administration Ibuprofen 600 mg 11/23/22 21:00 11/24/22 14:39 Ibuprofen 600 Mg Tab PO 12/23/22 20:59 600 mg Q6H ERROL Administration Multivitamins 1 tab 11/24/22 09:00 11/24/22 08:27 Multivitamin Tab PO 12/24/22 08:59 1 tab QAM ERROL Administration Oxycodone HCl 5 - 10 mg 11/23/22 14:40 11/24/22 10:22 Oxycodone Hcl Ir 5 Mg Tab (Immediate Release) PO 12/07/22 14:39 10 mg Q4H PRN Administration Pain or Pre PT Sennosides 17.2 mg 11/23/22 21:00 11/23/22 21:08 Senna 8.6 Mg Tab PO 12/23/22 20:59 17.2 mg HS ERROL Administration Vitamin D 5,000 units 11/24/22 09:00 11/24/22 08:27 Cholecalciferol 5,000 Units 125 Mcg Tab PO 12/24/22 08:59 5,000 units DAILY ERROL Administration NPO Date Last Intake of Fluids: 11/23/22 Time Last Intake of Fluids: 18:00 Last Intake of Fluids Comment: sips with medications Date Last Intake of Solids: 11/23/22 Time Last Intake of Solids: 18:00 Last Intake of Solids Comment: turkey greg Past Medical History Medical History Anemia COPD (chronic obstructive pulmonary disease) GERD (gastroesophageal reflux disease) Hx of hepatitis HEP A/B= NO FURTHER DETAILS Neoplasm LUNG (S/P LT UPPER LOBECTOMY), TRACHEA, BRONCHUS Rheumatoid arthritis Past Surgical History Surgical History History of arthroscopy of shoulder LEFT TSA= 12/03/15= GRADE 1 VIEW, MAC 3, ETT 8.0 AT [facility] History of lobectomy of lung 09/18/2018 - [facility] - LT VAT W/ LT UPPER LOBECTOMY + MEDIASTINAL LYMPHADENECTOMY - grade 1 view with Mac 3 and placement of 39 uzbek WILLI History of lung biopsy Social History Smoking Status: Unknown if ever smoked tobacco type: cigarettes substance use type: does not use Physical Exam Vital Signs Last Vital Signs Temp 36.6 C 11/24/22 15:19 Pulse 65 11/24/22 15:19 Resp 20 11/24/22 15:19 BP 128/83 11/24/22 15:19 Pulse Ox 95 11/24/22 15:19 O2 Del Method Room Air 11/24/22 15:19 O2 Flow Rate 3 11/23/22 17:10 Constitutional no acute distress ENMT Mouth: no dentition abnormality Thyromental Distance: > or= 3.5 Finger Breadths Mallampati Class: II Neck normal visual inspection Respiratory normal respiratory effort; no respiratory distress Auscultation: lungs clear to auscultation bilaterally Cardiovascular Rate/Rhythm: regular rate and regular rhythm Heart Sounds: no murmur Musculoskeletal Spine: normal cervical ROM Neurologic Motor/Sensory: + sensory deficit (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
--- NOTE | 2022-11-24 18:13 | Operative Report ---
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 Surgeon Peng Mcnamara MD Manager [employer] Srinivasa Wilcox PA-C Estimated Blood Loss 50 Findings Consistent with Post-Op Diagnosis Specimens None Drains None Anesthesia Type General Complications none Disposition Disposition: Recovery Room Indications Mr. Cortez is a 67-year-old male who just underwent a complicated revision total shoulder replacement yesterday with conversion of an unstable anatomic total shoulder arthroplasty to a reverse total shoulder. Unfortunately, postoperative x-rays showed recurrent dislocation of his revision reverse total shoulder arthroplasty. Revision surgery was recommended to upsize his components and prevent further instability. Risks, benefits, and alternatives of surgery were explained in detail. The patient understood all this and wished to proceed. Description of Procedure Components Implanted: Exactech Equinoxe Reverse Total Shoulder implants Glenosphere: 42mm, +4mm offset with central locking screw Humeral tray: +10mm thickness Polyethylene insert: 42mm, +0mm thickness Patient was identified in the preoperative holding area. Operative extremity was marked. Regional blockade that was given yesterday was still functioning. Patient was then brought back to the operating room, and general anesthesia was induced without complication. Appropriate weight-based dose of Ancef was infused intravenously for antibiotic prophylaxis. The patient was then placed in the beachchair position. Left arm was then prepped and draped in a standard sterile fashion using Chlorhexidine prep. Previous deltopectoral incision was reopened. Previously placed observable sutures were removed as they were encountered. The cephalic vein was identified and retracted medially. Small hematoma that had formed in the wound since surgery yesterday was evacuated, and a quickly came down onto the reverse total shoulder arthroplasty components. The shoulder was located at the time of surgery. I first took the shoulder through range of motion with the wound open in an attempt to identify potential causative factor for postoperative dislocation yesterday. No obvious reason for the dislocation was identified. I did theorize that he was potentially levering the lip of the humeral tray on the bony rim of the glenoid, although I could not reproduce this intraoperatively. The shoulder was then dislocated, and previous humeral tray and polyethylene liner were removed. I first planned to upsize the glenosphere with a more lateralized implant to give more soft tissue tension and move the center of rotation away from the glenoid rim, and increase the diameter of the glenosphere to give a greater "jump distance" for dislocation. Previous 38 mm glenosphere was removed. Previously placed glenoid baseplate was noted to be stable, and was not altered or removed. 42 mm trial glenosphere was placed over the baseplate, and this appeared an acceptable size. I then implanted a real 42 mm glenosphere with a +4 mm offset. After the revision of the glenosphere was complete, I then turned my attention to the humeral components. Since my previous implants included a +5 mm tray with a +2.5 mm polyethylene liner, I started with a +10 mm tray with a +0 mm polyethylene liner. This reduced with appropriate tension. I did attempt to increase the polyethylene liner to +2.5 mm, and I was able to reduce this, although with significant difficulty. However, when I took the shoulder through range of motion, this size combination clearly felt too tight. I therefore went back to the +10 mm tray with the +0 mm polyethylene liner. Again, this reduced with appropriate tension and I was able to take his arm through good range of motion with what felt like snug but very appropriate soft tissue tension. Final humeral components were then implanted. I then took the shoulder through full range of motion to ensure good stability and acceptable motion. Wound was then copiously irrigated with sterile saline. Deep fascia was closed with 0 V-lock suture. Subcutaneous tissue was closed with 2-0 V-lock, and skin was closed with 3-0 V-lock. Skin was then sealed with Dermabond. Sterile dressings were then applied with a waterproof silver-impregnated dressing, and the arm was placed into a sling. The patient was awakened from anesthesia and taken to the Post Anesthesia Care Unit in stable condition. There were no immediate complications from the procedure. I was present and scrubbed for the entire procedure, with the exception of final skin closure and dressing application. Due to the complex nature of the procedure, the entire surgery was performed with the operational assistance of Srinivasa Wilcox PA-C. The assistant fitness manager, under direct supervision, was involved in the performance of all aspects of the surgical procedure including hemostasis, tissue incision and retraction, instrument management, patient positioning, and wound closure. I attest to the content of the Intraoperative Record and any orders documented therein. Any exceptions are noted below.
[2022-11-24] MEDS: fentaNYL citrate PF 100 MCG/2 ML VIAL IV PRN ×2 (18:51→18:56)
--- NOTE | 2022-11-24 19:32 | Anesthesiology Progress Note ---
Date of Service November 24, 2022 Anesthesia Post Procedure Vital Signs Vital Signs: Temp Pulse Pulse Resp BP Pulse Ox O2 Del Method 11/24/22 19:10 36.8 C 77 13 107/78 95 Nasal Cannula 11/24/22 19:00 60 12 113/73 93 Oxymask 11/24/22 18:50 77 13 115/84 94 Oxymask 11/24/22 18:40 82 16 127/83 98 Oxymask 11/24/22 18:31 36.1 C L 85 12 136/84 97 Oxymask 11/24/22 15:19 36.6 C 65 20 128/83 95 Room Air 11/24/22 12:10 36.6 C 64 16 124/77 94 Room Air 11/24/22 08:25 36.5 C 73 18 121/81 92 Room Air 11/24/22 03:07 36.6 C 82 18 123/78 92 Room Air 11/23/22 21:00 Room Air 11/23/22 23:00 37 C 87 16 121/83 92 Room Air 11/23/22 20:00 36.5 C 85 18 131/85 95 Room Air O2 Flow Rate 11/24/22 19:10 2 11/24/22 19:00 5 11/24/22 18:50 5 11/24/22 18:40 5 11/24/22 18:31 5 11/24/22 15:19 11/24/22 12:10 11/24/22 08:25 11/24/22 03:07 11/23/22 21:00 11/23/22 23:00 11/23/22 20:00 Pain Intensity Left Shoulder: Pain Intensity: 4 Left Axilla: Pain Intensity: 4 Transfer of Care Handoff Completed per policy Notes Mental Status: alert / awake / arousable Patient Amnestic to Procedure: Yes Nausea / Vomiting: adequately controlled Pain: adequately controlled Airway Patency, RR, SpO2: stable & adequate BP & HR: stable & adequate Hydration State: stable & adequate Anesthetic Complications: no major complications apparent
[2022-11-24] MEDS: SENNA 8.6 MG TAB PO SCH (20:26)
[2022-11-25] MEDS: oxyCODONE HCL IR 5 MG TAB (IMMEDIATE RELEASE) PO PRN ×6 (03:08→23:03)
[2022-11-25] MEDS: IBUPROFEN 600 MG TAB PO SCH ×4 (03:09→19:51)
[2022-11-25] MEDS: ACETAMINOPHEN 500 MG TAB PO SCH ×4 (05:38→23:04)
--- NOTE | 2022-11-25 08:14 | XRay Report ---
XR shoulder LT min 2V routine CLINICAL HISTORY: Postop left revision total shoulder COMPARISON: Left shoulder radiographs November 23, 2022. FINDINGS: Alignment of the revision reverse total left shoulder arthroplasty is anatomic. There is n o periprosthetic fracture. No unexpected radiopaque foreign bodies present. IMPRESSION: Expected findings following revision total left shoulder arthroplasty. ACT 112: Negative or not required by law. Electronically signed by: Shiraz Rojas M.D. 11/25/2022 8:13 AM
[2022-11-25] MEDS: CHOLECALCIFEROL 5,000 UNITS 125 MCG TAB PO SCH (08:43)
[2022-11-25] MEDS: ASPIRIN 325 MG ECTAB PO SCH (08:43)
[2022-11-25] MEDS: GABAPENTIN 800 MG TAB PO SCH ×3 (08:44→19:51)
[2022-11-25] MEDS: FLUTICASONE FUROATE 200MCG 14 PUFFS/INHALER INH SCH (08:44)
[2022-11-25] MEDS: MULTIVITAMIN TAB PO SCH (08:44)
[2022-11-25] MEDS: DOCUSATE SODIUM 100 MG CAP PO SCH ×2 (08:44→19:50)
[2022-11-25] MEDS: ASCORBIC ACID 500 MG TAB PO SCH ×2 (08:45→19:49)
[2022-11-25 08:54] LABS: Hematocrit (blood only) 37.7 % (42.0-52.0); Hemoglobin 12.2 g/dl (14.0-18.0); Mean Corpuscular Hemoglobin 30.9 pg (25.0-34.0); Mean Corpuscular Hgb Conc 32.4 g/dL (32.0-36.0); Mean Corpuscular Volume 95.4 fL (80.0-100.0); Mean Platelet Volume 9.3 fL (9.4-12.4); Platelet Count 151 K/uL (130-400); RDW Coefficient of Variation 13.8 % (11.5-14.5); RDW Standard Deviation 48.6 fL (36.4-46.3); Red Blood Count 3.95 M/uL (4.70-6.10)
--- NOTE | 2022-11-25 09:16 | Orthopedic Progress Note ---
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 -Pain management as written -DVT prophylaxis: Aspirin 325 mg daily -PT/OT -A.m. labs: Hemoglobin at 12.2 from 12.5 yesterday. It is down from 15 preop. Acute blood loss anemia due to surgical loss versus dilutional. Chemistries pending. -Discharge planning: Plan on transfer back to his correctional institution when stable Admission and Anticipated Discharge Date Admission Date: November 23, 2022 Subjective Patient is postop day #2 from revision anatomic total shoulder to reverse total shoulder and postop day 1 from revision reverse total shoulder are plasty to upsize components due to dislocation on postop radiographs. Patient is doing well this morning. He just had pain medication. His pain is currently well controlled. No other complaints. Denies chest pain, shortness of breath, nausea/vomiting/diarrhea, lightheadedness or dizziness. Review of Systems Review of Systems: All systems reviewed & are unremarkable except as noted in Subjective Physical Exam Physical Exam: Left shoulder: Sling in place. Silverlon dressing is clean, dry and intact. Mild edema and swelling anterior chest and overlying shoulder. 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 Distally neurovascular status and sensation is grossly intact. Constitutional: WD/WN, vitals as above Results & Data Vital Signs (Past 12 Hours) Vital Signs Temp Pulse Resp BP Pulse Ox O2 Del Method O2 Flow Rate 11/25/22 07:38 36.5 C 64 20 119/77 96 Room Air 11/25/22 04:22 70 113/72 97 Nasal Cannula 2 11/25/22 03:33 36.5 C 72 15 99/62 L 95 Nasal Cannula 2 11/24/22 22:58 36.5 C 72 15 105/68 95 Room Air 11/24/22 21:46 36.5 C 69 15 121/77 94 Room Air
[2022-11-25 09:35] LABS: Calcium 8.8 mg/dl (8.5-10.1); Creatinine Clr Calc Pharmacy 89.6 ml/min; Est GFR (African American) 103.3 ml/min; Est GFR (Non-African American) 89.1 ml/min; Potassium 4.2 mmol/L (3.5-5.1)
[2022-11-25] MEDS: ALBUTEROL HFA 8 GM INHALER INH PRN ×2 (16:05→23:19)
[2022-11-25] MEDS ORDERED: KETOROLAC TROMETHAMINE 15 MG/ML VIAL IV ONE (16:30)
[2022-11-25] MEDS: SENNA 8.6 MG TAB PO SCH (19:52)
[2022-11-25] MEDS ORDERED: KETOROLAC TROMETHAMINE 15 MG/ML VIAL IV PRN (21:22)
[2022-11-25] MEDS ORDERED: MoRPHine SULFATE 2 MG/ML CARP IV PRN (21:23)
[2022-11-26] MEDS: oxyCODONE HCL IR 5 MG TAB (IMMEDIATE RELEASE) PO PRN ×2 (03:47→08:19)
[2022-11-26] MEDS: IBUPROFEN 600 MG TAB PO SCH ×2 (03:48→08:23)
[2022-11-26] MEDS: ACETAMINOPHEN 500 MG TAB PO SCH (06:31)
[2022-11-26] MEDS: FLUTICASONE FUROATE 200MCG 14 PUFFS/INHALER INH SCH (08:20)
[2022-11-26] MEDS: GABAPENTIN 800 MG TAB PO SCH (08:21)
[2022-11-26] MEDS: ASCORBIC ACID 500 MG TAB PO SCH (08:21)
[2022-11-26] MEDS: DOCUSATE SODIUM 100 MG CAP PO SCH (08:21)
[2022-11-26] MEDS: CHOLECALCIFEROL 5,000 UNITS 125 MCG TAB PO SCH (08:22)
[2022-11-26] MEDS: MULTIVITAMIN TAB PO SCH (08:22)
[2022-11-26] MEDS: ASPIRIN 325 MG ECTAB PO SCH (08:22)
--- NOTE | 2022-11-26 09:05 | Orthopedic Progress Note ---
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 -Pain management as written. Added Toradol as needed yesterday as well as morphine IV. Patient has not needed any of the morphine however has had 2 doses of Toradol. Pain is improved from yesterday. -DVT prophylaxis: Aspirin 325 mg daily -PT/OT -Discharge planning: Plan on transfer back to his correctional institution when stable. Plan on discharge today Admission and Anticipated Discharge Date Admission Date: November 23, 2022 Subjective Patient is resting in bed. Pain is improved from yesterday. No other complaints. Denies chest pain, shortness of breath, dizziness, nausea/vomiting/diarrhea. Review of Systems Review of Systems: All systems reviewed & are unremarkable except as noted in Subjective Physical Exam Physical Exam: Left shoulder: Sling in place. Silverlon dressing is clean, dry and intact. Mild edema and swelling anterior chest and overlying shoulder. 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 Distally neurovascular status and sensation is grossly intact. Results & Data Vital Signs (Past 12 Hours) Vital Signs Temp Pulse Resp BP Pulse Ox O2 Del Method O2 Flow Rate 11/26/22 06:53 36.5 C 62 16 129/80 94 Room Air 11/25/22 23:20 85 18 94 Room Air 2 11/25/22 21:21 37 C 79 16 121/73 95 Nasal Cannula 2
--- NOTE | 2022-11-27 16:47 | Discharge Summary ---
Date of Service November 27, 2022 Admission HPI Per Admitting Provider Mr. Cortez returns. Again, he is a 66-year-old old [id number]-expt-[id number] male with left shoulder pain and popping. He has had multiple previous surgeries on this left shoulder. He had a left total shoulder arthroplasty in November 2015, followed by a revision in February 2019 for fracture glenoid component, both by Dr. Perez. He reports that as soon as he went through the rehab for this left shoulder, he noticed this popping sensation in the left shoulder whenever he reaches to the side. He feels like it is popping out of place. He can easily get it to pop back into place. This is painful when this occurs, but he denies any pain on a regular basis other than during these popping episodes. He has never required a reduction under anesthesia for this. Previous operative reports were reviewed. He had a left anatomic total shoulder arthroplasty on 12/03/15. Humeral stem is an Exactech Equinoxe 11mm press-fit stem (110mm length). He then had a revision on 02/27/19 where the humeral head was exchanged but the stem was left in place and noted to be well fixed. The glenoid component was noted to be grossly loose, and this was replaced. Principal Diagnosis Left unstable anatomic total shoulder arthoplasty Discharge Data Allergies Allergy/AdvReac Type Severity Reaction Status Date / Time No Known Allergies Allergy Verified 11/23/22 07:29 Procedures Performed Operation Date: 11/24/22 07:00 Actual Procedures p Left shoulder arthroplasty revision(Left) - Peng Mcnamara M.D. 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 Patient tolerated the procedure well, but unfortunately immediate postoperative x-rays showed dislocation of his reverse total shoulder arthroplasty. He was taking back to the operating room the same day for closed reduction of that dislocation; this reduced very easily. I therefore decided to revise his reverse total shoulder arthroplasty components and upsize the components to prevent further instability. This was done the following day on 11/24. The shoulder was then much more stable and postoperative x-rays look good. He was transferred up to the general orthopedic surgery floor in stable condition. Perioperative antibiotic coverage was initiated, and continued for 24 hours postoperatively. DVT prophylaxis was initiated consisting of SCDs and aspirin 325 mg daily. Perioperative pain control regimen was transitioned to strictly oral pain medications by postoperative day 1. On postoperative day 2/3 the patient was doing very well. Pain was well controlled, and patient was mobilizing well with therapy. Patient was determined be safe and ready for discharge on 11/26. 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 [Physician] - Hollis BRANCH [Primary Care Provider] - Diet: Regular Addtl Attending Provider Instructions: Things to Watch Out For -Go to the Emergency Room if you have sudden onset of nausea, vomiting, chest pain, shortness of breath, or uncontrollable pain. -Call the clinic or go to the Emergency Room if you have a sudden increase in the amount of wound drainage or the drainage becomes thick, yellow or green, or foul-smelling. -For routine questions, call the clinic at [phone] during regular business hours (8am-5pm). For urgent issues after regular business hours, you may call the clinic to be connected to the on-call physician. Dressings -A special waterproof, silver-impregnated dressing was placed on your shoulder. Keep this dressing in place for 1 week after surgery. You may shower with the waterproof dressing in place, but do not soak the dressing in the bathtub or pool. -One week after surgery, you may remove the waterproof dressing. You may continue to shower, and let water run BRIEFLY over the incision, but do not soak the incision in the bathtub or pool for 2 weeks. You may also gently clean the incision with mild soap and water; pat the incision dry after cleaning-do not rub the incision. Apply a new dressing daily thereafter. Shoulder Exercises -Keep your operative shoulder in the sling for comfort, except as detailed below. -You should come out of the sling 4-5 times a day for passive pendulum exercises: lean over and swing your arm in a circular pattern. -You should also do active-assisted forward flexion exercises: use your opposite hand to lift your operative arm forward to 90 degrees. -Do not use your arm to push yourself up out of bed or up from a seated position. Ice Pack -You may use an ice pack for pain relief. You should use it 20-30 minutes at a time. Place a towel between the ice pack and your skin to prevent frostbite. -You should use the ice pack fairly regularly for the first 1-2 weeks after surgery to help reduce pain and inflammation. -About 2 weeks after your surgery, you should start using heat to loosen up your shoulder prior to doing your stretching exercises, then use the cooling sleeve after your exercises are complete to reduce swelling and pain. Recommended Postoperative Pain Medication Regimen for Incarcerated Patients -I recommend non-narcotic medications as the primary postoperative pain medications: ibuprofen 600mg and acetaminophen 500mg. Take each of these medications every 6 hours, but stagger them every 3 hours (i.e. take ibuprofen at 8:00 am, then acetaminophen at 11:00 am, then ibuprofen at 2:00 pm, etc) -DO NOT take any additional anti-inflammatories (Advil, Aleve/naproxen, Mobic/meloxicam, Celebrex) or any additional Tylenol/acetaminophen products with these medications. -I recommend an additional narcotic pain medication: oxycodone 5mg. Take this medicine ONLY for breakthrough pain not controlled by the ibuprofen and acetaminophen. -Do not drive or operate heavy machinery while taking the narcotic medication. -Common side effects of narcotic pain medicines include itching, nausea, constipation, and feeling "loopy". However, if you develop a rash or hives, stop taking the medicine and call the clinic. If you develop swelling in your throat or difficulty breathing, go to the Emergency Room or call 911 IMMEDIATELY. -Take over the counter stool softeners if needed for constipation. Aspirin -Take a full strength (325mg) aspirin every day for 4 weeks (28 days) to prevent blood clots. -If you were taking a baby aspirin (81mg) prior to surgery, you may resume taking this 81mg dose after you complete the 28-day course of the 325mg strength dose; do not take the 325mg dose in addition to your 81mg dose. -Be aware that you will bruise easier while taking Aspirin; this is normal. However, if you develop a significantly large area of swelling after an injury, or have a cut that will not stop bleeding, call the clinic or go to the Em ergency Room immediately. Pending Studies at Discharge: No Stand-Alone Forms: My [facility] Skilled Items Patient informed of condition?: Yes Discharge Level of Care: Other Communicable Disease: No Discharge Prognosis: Stable Lines: None Urinary Catheter: No Medications and DC Order Prescriptions: Continued gabapentin 800 mg Tablet 800 mg PO TID Alvesco 160 mcg/actuation Hfa Aerosol Inhaler 1 puff INHALATION BID cholecalciferol (vitamin D3) [Vitamin D3] 5,000 unit Tablet 5,000 unit PO DAILY ascorbic acid (vitamin C) [Vitamin C] 250 mg Tablet 250 mg PO BID albuterol sulfate 90 mcg/actuation Hfa Aerosol Inhaler 1 inh INHALATION QID PRN (Reason: Wheezing) naproxen 500 mg Tablet 500 mg PO BID PRN (Reason: Pain) [place] [facility] 2.65 % Aerosol,Ursa 1 spray INTRANASAL BID Discontinued aspirin 81 mg Tablet,Chewable 81 mg PO .LUNCH Discharge Orders: Discharge Order (Routine); Ordered 11/26/22 Ordered By: Ehsan Cool/Other Patient Handouts: Shoulder Replace Home Recovery Admission Data Admit Date/Time: 11/23/22 13:34 Attending Provider: Peng Mcnamara Admit Provider: Peng Mcnamara Primary Care Provider: Hollis BRANCH Other Interventions: Discharge Summary Assessment (RN) Last Done: 11/25/22 14:15
== END 2022-11-26 11:35 | DRG 908 ==
LOC: ASU 07:15 → 3W 13:34